=== PATIENT | female | born 1950 | race African-American/Black ===

== ENCOUNTER → 2017-03-29 | Outpatient (CLI) | payer OTHER, BC ==
--- NOTE | 2017-03-29 08:59 | US ---
EXAMINATION TYPE: US kidneys/renal and bladder DATE OF EXAM: 03/29/2017 8:40 AM COMPARISON: NONE CLINICAL HISTORY: R34 Anuria And Oliguria. Hematuria EXAM MEASUREMENTS: Right Kidney: 10.9 x 3.7 x 4.8 cm Left Kidney: 11.1 x 5.3 x 4.9 cm Post Void Residual Volume: 32.4 mL Right Kidney: no evidence of hydronephrosis or mass Left Kidney: no evidence of hydronephrosis or mass Bladder: appears wnl Bilateral Jets seen: yes Normal Post Void Residual: yes There is no evidence for hydronephrosis at this point in time. No nephrolithiasis is seen. No harry s are identified. The urinary bladder is anechoic. Bilateral ureteral jets are seen. IMPRESSION: No significant abnormality seen
== END | disposition home or self-care (01) ==
LOC: RADUSWWP 08:13
PROVIDERS: ATTEND Family Medicine
DX: R34 Anuria and oliguria (principal)
CPT/HCPCS: 76770

== ENCOUNTER → 2017-04-16 | Outpatient (CLI) | payer OTHER, BC ==
--- NOTE | 2017-04-16 20:01 | US ---
EXAMINATION TYPE: US thyroid st tissue head/neck DATE OF EXAM: 04/16/2017 COMPARISON: NONE CLINICAL HISTORY: E04.1 Thyroid nodule. GLAND SIZE: Right Lobe: 4.1 x 1.9 x 1.6 cm Overall Parenchyma: heterogenous Left Lobe: 4.1 x 1.7 x 1.8 cm Overall Parenchyma: heterogeneous Isthmus Thickness: 0.4 cm NODULES RIGHT: # of nodules measured on right: 3 1. 0.6 X 0.6 x 0.5 cm hypoechoic mixed nodule at the lower pole with well-defined margins. This no dule is wider than tall and shows no intranodular vascularity. Prior size: 0.8 x 0.6 x 0.7 cm 2. 0.8 X 0.9 x 1.3 cm echogenic solid nodule at the lower/mid medial pole with well-defined margins. . This nodule is taller than wide and shows no intranodular vascularity. Prior size: 1.1 x 0.9 x 1.0 cm 3. 0.7 X 0.6 x 0.6 cm echogenic solid nodule at the mid medial pole with well-defined margins. This nodule is wide as is tall and shows no intranodular vascularity. Prior size: 0.6 x 0.5 x 0.6 cm LEFT: # of nodules measured on left: 3 1. 2.0 X 1.3 x 1.3 cm echogenic mixed nodule at the lower lateral pole with well-defined margins. This nodule is wide as is tall and shows no intranodular vascularity. Prior size: 1.3 x 1.2 x 1.1 cm 2. 1.4 X 1.1 x 0.9 cm echogenic mixed nodule at the mid lateral pole with poorly defined margins. T his nodule is wider than tall and shows intranodular vascularity. Prior size: 1.0 x 0.7 x 1.0 cm 3. 0.8 X 0.7 x 0.6 cm echogenic solid nodule at the mid medial pole with poorly defined margins. Thi s nodule is wider than tall and shows no intranodular vascularity. Prior size: 0.7 x 0.8 x 0.9 cm ISTHMUS: # of nodules measured in the isthmus: 0 Bilateral neck scanned, no evidence of lymphadenopathy. IMPRESSION: Multiple bilateral findings are increased slightly compared to the previous exam and consistent with multinodular goiter. No dominant thyroid mass.
== END | disposition home or self-care (01) ==
LOC: RADUSMAIN 17:44
PROVIDERS: ATTEND Family Medicine
DX: E04.1 Nontoxic single thyroid nodule (principal)
CPT/HCPCS: 76536

== ENCOUNTER → 2019-12-27 | Outpatient (CLI) | payer MEDICARE, OTHER ==
--- NOTE | 2019-12-28 13:36 | MM ---
Reason for exam: screening (asymptomatic). Last mammogram was performed 3 years and 3 months ago. History: Patient is postmenopausal and had first child at age 33. Benign excisional biopsy of the left breast. Physical Findings: A clinical breast exam by your physician is recommended on an annual basis and results should be correlated with mammographic findings. MG 3D Screening Mammo W/Cad Bilateral CC and MLO view(s) were taken. XCCL view(s) were taken of the right breast. Prior study comparison: October 02, 2016, bilateral MG screening mammo w CAD. March 09, 2014, bilateral digital screening mammo w/CAD. The breast tissue is heterogeneously dense. This may lower the sensitivity of mammography. Left cardiac device partially obscures the left superior breast and axilla. 2D MLO is diagnostic but 3D MLO is non-diagnostic. ASSESSMENT: Negative, BI-RAD 1 RECOMMENDATION: Routine screening mammogram of both breasts in 1 year.
== END | disposition home or self-care (01) ==
LOC: RADMAMWWP 11:17
PROVIDERS: ATTEND Family Medicine
DX: Z12.31 Encounter for screening mammogram for malignant neoplasm of breast (principal)
CPT/HCPCS: 77063; 77067

== ENCOUNTER → 2021-06-09 | Outpatient (CLI) | payer MEDICARE, OTHER ==
--- NOTE | 2021-06-09 14:12 | US ---
LOWER EXTREMITY VENOUS INSUFFICIENCY CLINICAL HISTORY: I87.2 VENOUS INSUFFICENCY. SIDE PERFORMED: bilateral 1) Color flow is present and patency is documented in the following vessels. No DVT or SVT is noted . Common Femoral Vein Deep Femoral Vein Femoral Vein Popliteal Vein Proximal Calf Veins Greater Saph Vein Upper Small Saph Vein 2) There is venous reflux noted at the following venous levels: right EIV, right deep fem vn, right femoral vn mid, left EIV, left popliteal vein mid IMPRESSION: There is venous reflux noted at the following venous levels: right EIV, right deep fem vn, right fem oral vn mid, left EIV, left popliteal vein mid
== END | disposition home or self-care (01) ==
LOC: RADUSWWP 12:32
PROVIDERS: ATTEND Podiatrist Foot & Ankle Surgery
DX: I87.2 Venous insufficiency (chronic) (peripheral) (principal)
CPT/HCPCS: 93970

== ENCOUNTER → 2022-06-29 | Outpatient (CLI) | payer MEDICARE, OTHER ==
--- NOTE | 2022-06-29 16:30 | BD ---
EXAMINATION TYPE: Axial Bone Density DATE OF EXAM: 06/29/2022 COMPARISON: NONE CLINICAL HISTORY: 72 year old Female. ICD-10 CODE: Z87.81 PERSONAL HX OF HEALED TRAUMATIC FRACTURE Height: 62 Weight: 153.5 FRAX RISK QUESTIONS: Alcohol (3 or more units per day): no Family History (Parent hip fracture): yes Glucocorticoids (More than 3mos): no (Ex: prednisone, prednisolone, methylprednisolone, dexamethasone, and hydrocortisone). History of Fracture in Adulthood: yes Secondary Osteoporosis: 1. Type 1 Diabetes: no 2. Hyperthyroidism: no 3. Menopause before 45: no 4. Malnutrition: no 5. Chronic liver disease: no Rheumatoid Arthritis: no Current Tobacco Use: no RISK FACTORS HISTORY OF: Surgery to Spine/Hip(right/left)/Wrist (right/left): no Family History of Osteoporosis: no Active: no Diet low in dairy products/other sources of calcium: yes Postmenopausal woman: yes Lost more than 2 inches in height since high school: no MEDICATIONS: Thyroid Medications: amourthyroid How Lon years Additional History: EXAM MEASUREMENTS: Bone mineral densitometry was performed using the [employer] System. Bone mineral density as measured about the Lumbar spine is: ----- L1-L4(G/cm2): 0.869 T Score Values are as follows: ----- L1: -2.5 ----- L2: -3.0 ----- L3: -3.4 ----- L4: -1.8 ----- L1-L4: -2.6 Bone mineral density has: increased 2.6 % since study of: 08.21.2009 Bone mineral density about the R hip (g/cm2): 0.864 Bone mineral density about the L hip (g/cm2): 0.767 T Score values are as follows: -----R Neck -1.3 -----L Neck: -2.0 -----R Total: -1.4 -----L Total: -1.9 Bone mineral density has: decreased -10.0 % since study of: 08.21.2009 FRAX%s: The graph provided illustrates a 15.1 % chance for a major osteoporotic fx and a 7.5% chance for the hips probability for fx in 10 years time. IMPRESSION: Osteoporosis (T Score less than -2.5). There is increased fracture risk and therapy is usually indicated based on age. Re-Screen 1-2 years. NOTE: T-SCORE=SD OF THE YOUNG ADULT MEAN.
== END | disposition home or self-care (01) ==
LOC: RADBDWWP 14:32
PROVIDERS: ATTEND Family Medicine
DX: M81.0 Age-related osteoporosis without current pathological fracture (principal); Z87.81 Personal history of (healed) traumatic fracture
CPT/HCPCS: 77080

== ENCOUNTER → 2024-03-21 | Outpatient (CLI) | payer MEDICARE ==
--- NOTE | 2024-03-22 08:26 | US ---
EXAMINATION TYPE: US carotid duplex BILAT DATE OF EXAM: 03/21/2024 COMPARISON: NONE CLINICAL INDICATION: Female, 74 years old with history of I65.29 OCCLUSION AND STENOSIS OF UNSPECIFIE D CAROT; h/o TIA's TECHNIQUE: Carotid duplex ultrasound examination. Indirect Doppler criteria was utilized. FINDINGS: EXAM MEASUREMENTS: RIGHT: Peak Systolic Velocity (PSV) cm/sec ----- Right CCA: 87.3 ----- Right ICA: 66.3 ----- Right ECA: 60.2 ICA/CCA ratio: 0.7 RIGHT: End Diastole cm/sec ----- Right CCA: 15.5 ----- Right ICA: 20.3 ----- Right ECA: 4.7 LEFT: Peak Systolic Velocity (PSV) cm/sec ----- Left CCA: 85.1 ----- Left ICA: 65.8 ----- Left ECA: 57.0 ICA/CCA ratio: 0.8 LEFT: End Diastole cm/sec ----- Left CCA: 13.3 ----- Left ICA: 19.3 ----- Left ECA: 3.2 VERTEBRALS (direction of flow): Right Vertebral: Antegrade Left Vertebral: Antegrade Rhythm: Normal INTENSIVE CARE MEDICINE SPECIALIST NOTES: Mild homogeneous plaque seen with no significant stenosis . Intimal thickening is present. IMPRESSION: 1. Diffuse intimal thickening without significant flow-limiting stenosis. Criteria for Assigning % of Stenosis / Diameter reduction (Estimation based on the indirect measurements of the internal carotid artery velocities (ICA PSV). 1. Normal (no stenosis)=ICA PSV < 125 cm/s: ratio < 2.0: ICA EDV<40 cm/s. 2. Less than 50% stenosis=ICA PSV < 125 cm/s: ratio < 2.0: ICA EDV<40 cm/s. 3. 50 to 69% stenosis=ICA PSV of 125 to 230 cm/s: ration 2.0 ? 4.0: ICA EDV 40-100 cm/s. 4. Greater than 70% stenosis to near occlusion= ICA PSV > 230 cm/s: ratio > 4.0: ICA EDV > 100 cm/s. 5. Near occlusion= ICA PSV velocities may be low or undetectable: variable ratio and ICA EDV. 6. Total occlusion=unable to detect flow.
== END | disposition home or self-care (01) ==
LOC: RADUSWWP 15:37
PROVIDERS: ATTEND Family Medicine
DX: I77.89 Other specified disorders of arteries and arterioles (principal); I65.29 Occlusion and stenosis of unspecified carotid artery
CPT/HCPCS: 93880

== ENCOUNTER 2024-05-01 16:59 | Observation (INO) | payer MEDICARE, OTHER ==
--- NOTE | 2024-05-01 18:35 | ED ---
Lower Extremity Injury HPI - General Chief Complaint: Extremity Injury, Lower Stated Complaint: Right Leg Swelling, Leg Pain, Bilateral Numbness Time Seen by Provider: 05/01/24 17:57 Source: patient, RN notes reviewed, old records reviewed Mode of arrival: wheelchair Limitations: no limitations - History of Present Illness Initial Comments: This is a 74-year-old female to the ER for evaluation of right foot pain right lower extremity pain swelling with foot pain and discoloration great toe redness and tenderness. Patient has no fevers increased swelling after recent cardiac catheterization CABG with saphenous venous grafting. MD Complaint: leg injury, ankle injury, foot injury -: days(s) Injury: Leg: Right, Knee: Right, Ankle: Right, Foot: Right Place: home Severity: moderate Severity scale (1-10): 7 Improves With: immobilization Worsens With: weight bearing, movement, palpation Context: other (recent surgery) Associated Symptoms: swelling, numbness, unable to bear weight Treatments Prior to Arrival: other (0) - Related Data Home Medications Medication Instructions Recorded Confirmed Aspirin [Adult Low Dose Aspirin EC] 81 mg PO DAILY 08/06/22 05/01/24 Thyroid,Pork [Cayuta Thyroid] 90 mg PO DAILY 08/06/22 05/01/24 Amiodarone [Cordarone] 200 mg PO DAILY 05/01/24 05/01/24 Clopidogrel [Plavix] 75 mg PO DAILY 05/01/24 05/01/24 Furosemide [Lasix] 20 mg PO BID 05/01/24 05/01/24 Potassium Chloride ER [K-Dur 10] 10 meq PO DAILY 05/01/24 05/01/24 Rosuvastatin [Crestor] 20 mg PO HS 05/01/24 05/01/24 Previous Rx's Medication Instructions Recorded Metoprolol Tartrate [Lopressor] 25 mg PO BID #60 tab 09/04/23 Allergies Allergy/AdvReac Type Severity Reaction Status Date / Time TRAVIS Inhibitors Allergy Anaphylaxis Verified 05/01/24 18:46 levothyroxine sodium Allergy Swelling Verified 05/01/24 18:46 [From Synthroid] beta blockers Allergy Anaphylaxis Uncoded 05/01/24 18:46 Preservatives/synthetic Allergy Swelling Uncoded 05/01/24 18:46 medications Review of Systems ROS Statement: Those systems with pertinent positive or pertinent negative responses have been documented in the HPI. ROS Other: All systems not noted in ROS Statement are negative. Past Medical History Past Medical History: Coronary Artery Disease (CAD), Hypertension, Thyroid Disorder History of Any Multi-Drug Resistant Organisms: None Reported Past Surgical History: Coronary Bypass/CABG, Hysterectomy, Pacemaker Additional Past Surgical History / Comment(s): cataract Past Anesthesia/Blood Transfusion Reactions: No Reported Reaction Type of Cardiac Device: AICD Device Placement Date:: 2013 Past Psychological History: No Psychological Hx Reported Smoking Status: Never smoker Past Alcohol Use History: Occasional Past Drug Use History: None Reported - Past Family History Brother(s) Family Medical History: Cancer, Congestive Heart Failure (CHF) Father Family Medical History: Cancer, Congestive Heart Failure (CHF) General Exam General appearance: alert, in no apparent distress Head exam: Present: atraumatic, normocephalic, normal inspection Eye exam: Present: normal appearance, PERRL, EOMI. Absent: scleral icterus, conjunctival injection, periorbital swelling ENT exam: Present: normal exam, mucous membranes moist Neck exam: Present: normal inspection. Absent: tenderness, meningismus, lymphadenopathy Respiratory exam: Present: normal lung sounds bilaterally. Absent: respiratory distress, wheezes, rales, rhonchi, stridor Cardiovascular Exam: Present: regular rate, normal rhythm, normal heart sounds. Absent: systolic murmur, diastolic murmur, rubs, gallop, clicks GI/Abdominal exam: Present: soft, normal bowel sounds. Absent: distended, tenderness, guarding, rebound, rigid Extremities exam: Present: normal inspection, full ROM, normal capillary refill. Absent: tenderness, pedal edema, joint swelling, calf tenderness Back exam: Present: normal inspection Neurological exam: Present: alert, oriented X3, CN II-XII intact Psychiatric exam: Present: normal affect, normal mood Skin exam: Present: warm, dry, intact, normal color. Absent: rash Course Vital Signs 05/01/24 17:45 Temperature 98.5 F Pulse Rate 80 Respiratory 18 Rate Blood Pressure 117/67 O2 Sat by Pulse 98 Oximetry - Reevaluation(s) Reevaluation #1: 05/01/24 18:34 Medical records reviewed Reevaluation #2: 05/01/24 19:58 patient symptoms are improved Reevaluation #3: 05/01/24 19:59 Patient informed of results and questions answered Reevaluation #4: Was pt. sent in by a medical professional or institution (, [facility], PHARMACISTS, urgent care, hospital, or group home...) When possible be specific @ -no Did you speak to anyone other than the patient for history (EMS, parent, family, police, friend...)? What history was obtained from this source @ -no Did you review nursing and triage notes (agree or disagree)? Why? @ -agree Are old charts reviewed (outside hosp., previous admission, EMS record, old EKG, old radiological studies, urgent care reports/EKG's, group home records)? Report findings @ -yes Differential Diagnosis (chest pain, altered mental status, abdominal pain women, abdominal pain men, vaginal bleeding, weakness, fever, dyspnea, syncope, headache, dizziness, GI bleed, back pain, seizure, CVA, palpatations, mental health, musculoskeletal)? @ -prior EKG interpreted by me (3pts min.). @ -yes X-rays interpreted by me (1pt min.). @ -yes negative for acute disease CT interpreted by me (1pt min.). @ -no U/S interpreted by me (1pt. min.). @ -no What testing was considered but not performed or refused? (CT, X-rays, U/S, labs)? Why? @ -none What meds were considered but not given or refused? Why? @ -none Did you discuss the management of the patient with other professionals (professionals i.e. , [facility], PHARMACISTS, lab, RT, psych nurse, social media executive, applique sewer, teacher, air antisubmarine officer, pillowcase cleaner)? Give summary @ -no Was smoking cessation discussed for >3mins.? @ -no Were there social determinants of health that impacted care today? How? (Homelessness, low income, unemployed, alcoholism, drug addiction, transportation, low edu. Level, literacy, decrease access to med. care, residential, rehab)? @ -none Was there de-escalation of care discussed even if they declined (Discuss DNR or withdrawal of care, Hospice)? DNR status @ -no What co-morbidities impacted this encounter? (DM, HTN, Smoking, COPD, CAD, Cancer, CVA, ARF, Chemo, Hep., AIDS, mental health diagnosis, sleep apnea, morbid obesity)? @ -none Was patient admitted / discharged? Hospital course, mention meds given and route, prescriptions, significant lab abnormalities, [facility]. @ - Was critical care preformed (if so, how long)? @ -no Undiagnosed new problem with uncertain prognosis? @ -no Drug Therapy requiring intensive monitoring for toxicity (Heparin, Nitro, Insulin, Cardizem)? @ -no Were any procedures done? @ -no Diagnosis/symptom? @ - Acute, or Chronic, or Acute on Chronic? @ -Acute Uncomplicated (without systemic symptoms) or Complicated (systemic symptoms)? @ -Complicated Side effects of treatment? @ -no Exacerbation, Progression, or Severe Exacerbation? @ -exacerbation Poses a threat to life or bodily function? How? (Chest pain, USA, PA, pneumonia, PE, COPD, DKA, ARF, appy, cholecystitis, CVA, Diverticulitis, Homicidal, Suicidal, threat to staff... and all critical care pts) @ -yes - Consultations Consultation #1: Spoke with [facility] who agrees to admit this patient Medical Decision Making - Medical Decision Making 74 female to ER with severe right foot pain with right great toe pain and swelling. Patient will be admitted for IV antibiotics of cellulitis versus gout - EKG Data -: EKG Interpreted by Me (EKG is paced 80 WV 168 QRS 154 QTc 476) EKG shows normal: sinus rhythm Rate: normal - Radiology Data Radiology results: report reviewed (US), image reviewed Disposition Clinical Impression: Pain of right great toe, Cellulitis of toe of right foot, Gouty arthritis of great toe Disposition: ADMITTED IP TO THIS HOSP Condition: Fair Is patient prescribed a controlled substance at d/c from ED?: No Referrals: Alexis Navarrete DO [Primary Care Provider] - 1-2 days Time of Disposition: 20:00
--- NOTE | 2024-05-01 19:05 | XR ---
Right foot HISTORY: Pain. COMPARISON: None TECHNIQUE: 3 views of right foot were obtained. FINDINGS: There is mild hallux valgus deformity. There is no fracture, dislocation or focal intraosseous abnormality. There is a small plantar calcane al spur. IMPRESSION: 1. No acute trauma. 2. Mild hallux valgus deformity. 3. Small plantar calcaneal spur.
[2024-05-01] MEDS ORDERED: ONDANSETRON 4 MG/2 ML VIAL IVP PRN (19:56)
[2024-05-01] MEDS ORDERED: NALOXONE 0.4 MG/ML 1 ML VIAL IV PRN (19:56)
[2024-05-01] MEDS ORDERED: VANCOMYCIN IV PER PHARMACY 1 EACH MISC MISCELLANE PRN (19:56)
--- NOTE | 2024-05-01 20:01 | US ---
EXAMINATION TYPE: US venous doppler duplex LE RT DATE OF EXAM: 05/01/2024 7:50 PM COMPARISON: 06/09/2021 CLINICAL INDICATION: Female, 74 years old with history of pain; Patient states leg pain and swelling since triple bypass surgery at the end of march. Has wound on lower calf. Patient has no hx of a dvt an d is currently on blood thinners. SIDE PERFORMED: Right TECHNIQUE: The lower extremity deep venous system is examined utilizing real time linear array sonog harriet with graded compression, doppler sonography and color-flow sonography. VESSELS IMAGED: Common Femoral Vein Deep Femoral Vein Greater Saphenous Vein * Femoral Vein Popliteal Vein Small Saphenous Vein * Proximal Calf Veins (* superficial vessels) The deep venous system of the right lower extremity from the common femoral vein to the proximal calf veins is patent and compressible with augmentable flow with normal waveforms. IMPRESSION: No evidence of right lower extremity DVT from the common femoral vein to the proximal calf veins
[2024-05-01] MEDS: METOPROLOL TARTRATE 25 MG TAB PO SCH (21:58)
[2024-05-01] MEDS: FUROSEMIDE 20 MG TAB PO SCH (21:58)
[2024-05-01] MEDS: ATORVASTATIN 40 MG TAB PO SCH (21:58)
[2024-05-01 21:59] LABS: Basophils % (A) 0 %; Eosinophils # (A) 0.6 k/uL (0-0.7); Eosinophils % (A) 9 %; HCT 31.9 % (34.0-46.0); HGB 9.9 gm/dL (11.4-16.0); Hypochromasia Slight; Lymphocytes % (A) 31 %; MCH 29.1 pg (25.0-35.0); MCHC 31.2 g/dL (31.0-37.0); MCV 93.2 fL (80.0-100.0); Mean Platelet Volume 6.8; Monocytes # (A) 0.4 k/uL (0-1.0); Monocytes % (A) 6 %; Neutrophils # (A) 3.4 k/uL (1.3-7.7); Neutrophils % (A) 52 %; Platelet Count 376 k/uL (150-450); RBC 3.42 m/uL (3.80-5.40); RDW 15.6 % (11.5-15.5); WBC 6.7 k/uL (3.8-10.6)
[2024-05-01] MEDS: SODIUM CHLORIDE 0.9% 1,000 ML IV SCH (21:59)
[2024-05-01] MEDS: KETOROLAC 15 MG/ML 1 ML VIAL IVP STA (22:00)
[2024-05-01] MEDS: SODIUM CHLORIDE 0.9% 1,000 ML IV STA (22:15)
[2024-05-01 22:26] LABS: Prothrombin Time 10.8 sec (10.0-12.5)
[2024-05-01] MEDS: MORPHINE SULFATE 4 MG/ML SYRINGE IV PRN (22:30)
[2024-05-01 22:49] LABS: ALT 15 U/L (4-34); AST 28 U/L (14-36); African American GFR (CKD) 87 (>60 ml/min/1.73 sqM); Albumin 3.3 g/dL (3.5-5.0); Albumin/Globulin Ratio 1.1; Alkaline Phosphatase 115 U/L (38-126); Anion Gap 8 mmol/L; Blood Urea Nitrogen 13 mg/dL (7-17); C Reactive Protein 1.6 mg/dL (<1.0); Calcium 8.2 mg/dL (8.4-10.2); Carbon Dioxide 24 mmol/L (22-30); Chloride 106 mmol/L (98-107); Globulin 2.9 g/dL; Glucose 99 mg/dL (74-99); Magnesium 1.8 mg/dL (1.6-2.3); Non-African American GFR(CKD) 75 (>60 ml/min/1.73 sqM); Phosphorus 3.6 mg/dL (2.5-4.5); Potassium 3.6 mmol/L (3.5-5.1); Sodium 138 mmol/L (137-145); Total Bilirubin 0.8 mg/dL (0.2-1.3); Total Protein 6.2 g/dL (6.3-8.2); Uric Acid 6.8 mg/dL (3.7-7.4)
[2024-05-01 22:55] LABS: NT-Pro-B-Type Natriuretic Pept 701 pg/mL
[2024-05-01] MEDS: VANCOMYCIN 1,250 MG in SODIUM CHLORIDE 0.9% 250 ML IVPB STA (23:58)
[2024-05-02 08:59] LABS: Basophils # (A) 0.03 X 10*3/uL (0.00-0.10); Basophils % (A) 0.6 %; Eosinophils # (A) 0.54 X 10*3/uL (0.04-0.35); Eosinophils % (A) 10.1 %; HCT 29.2 % (37.2-46.3); HGB 8.7 g/dL (12.0-15.0); MCH 28.4 pg (27.0-32.0); MCHC 29.8 g/dL (32.0-37.0); MCV 95.4 FL (80.0-97.0); Mean Platelet Volume 9.1 FL (9.5-12.2); Monocytes % (A) 9.4 %; NRBC Per 100 WBC 0 X 10*3/uL (0.00-0.01); Neutrophils # (A) 2.64 X 10*3/uL (1.80-7.70); Neutrophils % (A) 49.5 %; Platelet Count 338 X 10*3/uL (140-440); RBC 3.06 X 10*6/uL (4.10-5.20); RDW 16.1 % (11.5-14.5); WBC 5.33 X 10*3/uL (4.50-10.00)
[2024-05-02 09:09] LABS: ALT 15 U/L (8-44); AST 22 U/L (13-35); Albumin 3.2 g/dL (3.8-4.9); Albumin/Globulin Ratio 1.23 Ratio (1.60-3.17); Alkaline Phosphatase 98 U/L (41-126); Blood Urea Nitrogen 10.8 mg/dL (9.0-27.0); Calcium 8.1 mg/dL (8.7-10.3); Carbon Dioxide 25.3 mmol/L (21.6-31.8); Chloride 107 mmol/L (96-109); Globulin 2.6 g/dL (1.6-3.3); Glucose 100 mg/dL (70-110); Magnesium 1.8 mg/dL (1.5-2.4); Phosphorus 3.6 mg/dL (2.4-5.1); Potassium 3.6 mmol/L (3.5-5.5); Sodium 143 mmol/L (135-145); Total Bilirubin 0.4 mg/dL (0.3-1.2); Total Protein 5.8 g/dL (6.2-8.2)
[2024-05-02] MEDS ORDERED: CALCIUM CARBONATE 500 MG CHEWABLE PO PRN (10:45)
[2024-05-02] MEDS ORDERED: ACETAMINOPHEN TAB 325 MG TAB PO PRN (10:45)
[2024-05-02] MEDS ORDERED: MELATONIN 3 MG TABLET PO PRN (10:45)
[2024-05-02] MEDS ORDERED: ALPRAZolam 0.25 MG TAB PO PRN (10:45)
[2024-05-02] MEDS ORDERED: LACTULOSE 20 GM/30 ML CUP PO PRN (10:45)
[2024-05-02] MEDS: AMIODARONE 200 MG TAB PO SCH (11:36)
[2024-05-02] MEDS: POTASSIUM CHLORIDE ER 10 MEQ TAB.ER.PRT PO SCH (11:36)
[2024-05-02] MEDS: ASPIRIN 81 MG PO SCH (11:37)
[2024-05-02] MEDS: CLOPIDOGREL 75 MG TAB PO SCH (11:37)
[2024-05-02] MEDS: ENOXAPARIN 40 MG/0.4 ML SYRINGE SQ SCH (11:39)
[2024-05-02] MEDS: VANCOMYCIN 1,250 MG in SODIUM CHLORIDE 0.9% 250 ML IVPB SCH (12:03)
[2024-05-02] MEDS: THYROID, PORK 30 MG TAB PO SCH (12:29)
[2024-05-02] MEDS: AMPICILLIN-SULBACTAM 1.5 GM in SODIUM CHLORIDE 0.9% 50 ML IVPB SCH (12:30)
--- NOTE | 2024-05-02 15:58 | P.GSCN ---
History of Present Illness History of present illness: 74-year-old pleasant female patient has been admitted through the emergency room with history of pain in the right foot and some discoloration of the big toe. And had a CABG done at [facility] they explored the right great saphenous vein accord with the patient but they did not use it because small in caliber no history of fever or chill patient has a incision on the right lower extremity for exploration of the great saphenous vein. Site is clean and healing we have changed her dressing. Sounds done on the right leg there is no evidence of deep vein thrombosis On examination neck is supple no bruit appreciated Chest is clear good in both lung. Second sound normal abdomen soft nontender Vascular femorals are 2+ bilateral posterior tibial dorsal pedis by the Doppler incision on the right lower extremity shows some mild swelling and no evidence of hematoma right foot swelling is almost gone and patient has decent flow to the digital vessel of the right leg. Patient is stable from a vascular point of view I will discuss with Dr. Cheng Past Medical History Past Medical History: Coronary Artery Disease (CAD), CVA/TIA, Hypertension, Thyroid Disorder Additional Past Medical History / Comment(s): Triple Bypass 04/11/24 [facility], osteoporosis, TIA History of Any Multi-Drug Resistant Organisms: None Reported Past Surgical History: AICD, Coronary Bypass/CABG, Hysterectomy, Pacemaker Additional Past Surgical History / Comment(s): cataract Past Anesthesia/Blood Transfusion Reactions: No Reported Reaction Type of Cardiac Device: AICD Device Placement Date:: 2021 Past Psychological History: No Psychological Hx Reported Smoking Status: Never smoker Past Alcohol Use History: Occasional Past Drug Use History: None Reported - Past Family History Brother(s) Family Medical History: Cancer, Congestive Heart Failure (CHF) Father Family Medical History: Cancer, Congestive Heart Failure (CHF) Medications and Allergies Home Medications Medication Instructions Recorded Confirmed Type Aspirin [Adult Low Dose Aspirin EC] 81 mg PO DAILY 08/06/22 05/01/24 History Thyroid,Pork [Wrens Thyroid] 90 mg PO DAILY 08/06/22 05/01/24 History Metoprolol Tartrate [Lopressor] 25 mg PO BID #60 tab 09/04/23 05/01/24 Rx Amiodarone [Cordarone] 200 mg PO DAILY 05/01/24 05/01/24 History Clopidogrel [Plavix] 75 mg PO DAILY 05/01/24 05/01/24 History Furosemide [Lasix] 20 mg PO BID 05/01/24 05/01/24 History Potassium Chloride ER [K-Dur 10] 10 meq PO DAILY 05/01/24 05/01/24 History Rosuvastatin [Crestor] 20 mg PO HS 05/01/24 05/01/24 History Allergies Allergy/AdvReac Type Severity Reaction Status Date / Time TRAVIS Inhibitors Allergy Anaphylaxis Verified 05/01/24 18:46 levothyroxine sodium Allergy Swelling Verified 05/01/24 18:46 [From Synthroid] beta blockers Allergy Anaphylaxis Uncoded 05/01/24 18:46 Preservatives/synthetic Allergy Swelling Uncoded 05/01/24 18:46 medications Surgical - Exam Vital Signs Temp Pulse Resp BP Pulse Ox 98.5 F 80 18 117/67 98 05/01/24 17:45 05/01/24 17:45 05/01/24 17:45 05/01/24 17:45 05/01/24 17:45 Results - Labs 05/02/24 02:42 05/02/24 02:42 Abnormal Lab Results - Last 24 Hours (Table) 05/01/24 05/01/24 05/01/24 Range/Units 21:08 21:08 22:21 RBC 3.42 L (3.80-5.40) m/uL Hgb 9.9 L (11.4-16.0) gm/dL Hct 31.9 L (34.0-46.0) % MCHC (32.0-37.0) g/dL RDW 15.6 H (11.5-15.5) % MPV (9.5-12.2) FL Eosinophils # (0.04-0.35) X 10*3/uL D-Dimer 6.11 H (<0.60) mg/L FEU Calcium 8.2 L (8.4-10.2) mg/dL C-Reactive Protein 1.6 H (<1.0) mg/dL Total Protein 6.2 L (6.3-8.2) g/dL Albumin 3.3 L (3.5-5.0) g/dL Albumin/Globulin Ratio (1.60-3.17) Ratio 05/02/24 05/02/24 Range/Units 02:42 02:42 RBC 3.06 L (3.80-5.40) m/uL Hgb 8.7 L (11.4-16.0) gm/dL Hct 29.2 L (34.0-46.0) % MCHC 29.8 L (32.0-37.0) g/dL RDW 16.1 H (11.5-15.5) % MPV 9.1 L (9.5-12.2) FL Eosinophils # 0.54 H (0.04-0.35) X 10*3/uL D-Dimer (<0.60) mg/L FEU Calcium 8.1 L (8.4-10.2) mg/dL C-Reactive Protein (<1.0) mg/dL Total Protein 5.8 L (6.3-8.2) g/dL Albumin 3.2 L (3.5-5.0) g/dL Albumin/Globulin Ratio 1.23 L (1.60-3.17) Ratio Diabetes panel 05/01/24 05/02/24 Range/Units 22:21 02:42 Sodium 138 143 (137-145) mmol/L Potassium 3.6 3.6 (3.5-5.1) mmol/L Chloride 106 107 (98-107) mmol/L Carbon Dioxide 24 25.3 (22-30) mmol/L BUN 13 10.8 (7-17) mg/dL Creatinine 0.77 0.8 (0.52-1.04) mg/dL Glucose 99 100 (74-99) mg/dL Calcium 8.2 L 8.1 L (8.4-10.2) mg/dL AST 28 22 (14-36) U/L ALT 15 15 (4-34) U/L Alkaline Phosphatase 115 98 (38-126) U/L Total Protein 6.2 L 5.8 L (6.3-8.2) g/dL Albumin 3.3 L 3.2 L (3.5-5.0) g/dL Calcium panel 05/01/24 05/02/24 Range/Units 22:21 02:42 Calcium 8.2 L 8.1 L (8.4-10.2) mg/dL Phosphorus 3.6 3.6 (2.5-4.5) mg/dL Albumin 3.3 L 3.2 L (3.5-5.0) g/dL Pituitary panel 05/01/24 05/02/24 Range/Units 22:21 02:42 Sodium 138 143 (137-145) mmol/L Potassium 3.6 3.6 (3.5-5.1) mmol/L Chloride 106 107 (98-107) mmol/L Carbon Dioxide 24 25.3 (22-30) mmol/L BUN 13 10.8 (7-17) mg/dL Creatinine 0.77 0.8 (0.52-1.04) mg/dL Glucose 99 100 (74-99) mg/dL Calcium 8.2 L 8.1 L (8.4-10.2) mg/dL Adrenal panel 05/01/24 05/02/24 Range/Units 22:21 02:42 Sodium 138 143 (137-145) mmol/L Potassium 3.6 3.6 (3.5-5.1) mmol/L Chloride 106 107 (98-107) mmol/L Carbon Dioxide 24 25.3 (22-30) mmol/L BUN 13 10.8 (7-17) mg/dL Creatinine 0.77 0.8 (0.52-1.04) mg/dL Glucose 99 100 (74-99) mg/dL Calcium 8.2 L 8.1 L (8.4-10.2) mg/dL Total Bilirubin 0.8 0.4 (0.2-1.3) mg/dL AST 28 22 (14-36) U/L ALT 15 15 (4-34) U/L Alkaline Phosphatase 115 98 (38-126) U/L Total Protein 6.2 L 5.8 L (6.3-8.2) g/dL Albumin 3.3 L 3.2 L (3.5-5.0) g/dL
--- NOTE | 2024-05-02 16:58 | P.HPIM ---
History of Present Illness H&P Date: 05/02/24 Chief Complaint: Right foot redness swelling This is a pleasant 74-year-old patient follows with Dr. Navarrete. Patient follows at [facility]. Dr. Lujan-woodworking machine offbearer, Dr. Gale, cardiothoracic surgeon, -EP. Patient recently underwent a coronary bypass and [facility]. Discharged from there on April 22. They did try patient's right leg veins but ended ultimately up to use internal mammary artery. Patient presents some swelling of both lower extremity right greater than left. It is the right leg that try to take the veins from. Patient had noticed that around the right big toe and proximal LAD had become rather painful tender and swollen. Patient had no fever and chills and decided to come in. No prior history of gout. Denies any fever and chills. Tired. Appetite had decreased a bit. No change in bowel pattern. Received IV ceftriaxone and vancomycin in the ER. Pain swelling redness much better this morning. Review of systems: GEN.: Tired EYES: None HEENT: As above NECK: None RESPIRATORY: None CARDIOVASCULAR: None GASTROINTESTINAL: None GENITOURINARY: None MUSCULOSKELETAL: As above LYMPHATICS: None HEMATOLOGICAL: None PSYCHIATRY: None NEUROLOGICAL: None Social history: Nonsmoker. Lives alone. Retired from working at [employer]. Alcohol occasionally. Physical examination: VITAL SIGNS: 98.4, 80, 16, 109 x 66, 98% room air GENERAL: BMI 27.8, reclining. Sternal incisions healing well EYES: Pupils equal. Conjunctiva normal. HEENT: External appearance of nose and ears normal, oral cavity grossly normal. NECK: JVD not raised; masses not palpable. HEART: First and second heart sounds are normal; no edema. LUNGS: Respiratory rate normal; clear to auscultation. ABDOMEN: Soft, nontender, liver spleen not palpable, no masses palpable. PSYCH: Alert and oriented x3; mood and affect normal. MUSCULOSKELETAL: Right leg areas of vein harvesting have got stitches on the same. Some swelling of the right lower extremity. Area of initial redness around the right big toe and the proximal area better. Minimal tenderness. INVESTIGATIONS, reviewed in the clinical context: May 02, 2024: White count 5.3 hemoglobin 8.7 platelets 338 sodium 143 potassium 3.6 creatinine 0.8 Assessment and plan: -Acute cellulitis right lower extremity possibly precipitated by area of vein stripping extending down to the right big toe. Clinically doubt gout IV Unasyn -CAD, prior stents Plavix. Lopressor. Aspirin. Crestor -CABG patient discharged from the hospital on April 22 Sternal incision wound healing well -Essential hypertension Lopressor 25 mg twice a day. -Hyperlipidemia Crestor -Hypothyroid [place] Thyroid Care was discussed with patient and patient's son Jos who is a 7th grade social studies teacher in the hospital. Questions answered. Consultation made to Dr. Stanford from vascular. Past Medical History Past Medical History: Coronary Artery Disease (CAD), Hypertension, Thyroid Disorder History of Any Multi-Drug Resistant Organisms: None Reported Past Surgical History: Coronary Bypass/CABG, Hysterectomy, Pacemaker Additional Past Surgical History / Comment(s): cataract Past Anesthesia/Blood Transfusion Reactions: No Reported Reaction Type of Cardiac Device: AICD Device Placement Date:: 2013 Past Psychological History: No Psychological Hx Reported Smoking Status: Never smoker Past Alcohol Use History: Occasional Past Drug Use History: None Reported - Past Family History Brother(s) Family Medical History: Cancer, Congestive Heart Failure (CHF) Father Family Medical History: Cancer, Congestive Heart Failure (CHF) Medications and Allergies Home Medications Medication Instructions Recorded Confirmed Type Aspirin [Adult Low Dose Aspirin EC] 81 mg PO DAILY 08/06/22 05/01/24 History Thyroid,Pork [[place] Thyroid] 90 mg PO DAILY 08/06/22 05/01/24 History Metoprolol Tartrate [Lopressor] 25 mg PO BID #60 tab 09/04/23 05/01/24 Rx Amiodarone [Cordarone] 200 mg PO DAILY 05/01/24 05/01/24 History Clopidogrel [Plavix] 75 mg PO DAILY 05/01/24 05/01/24 History Furosemide [Lasix] 20 mg PO BID 05/01/24 05/01/24 History Potassium Chloride ER [K-Dur 10] 10 meq PO DAILY 05/01/24 05/01/24 History Rosuvastatin [Crestor] 20 mg PO HS 05/01/24 05/01/24 History Allergies Allergy/AdvReac Type Severity Reaction Status Date / Time TRAVIS Inhibitors Allergy Anaphylaxis Verified 05/01/24 18:46 levothyroxine sodium Allergy Swelling Verified 05/01/24 18:46 [From Synthroid] beta blockers Allergy Anaphylaxis Uncoded 05/01/24 18:46 Preservatives/synthetic Allergy Swelling Uncoded 05/01/24 18:46 medications Physical Exam Vitals: Vital Signs Temp Pulse Pulse Resp BP BP Pulse Ox 05/02/24 07:00 98.0 F 80 17 131/79 99 05/02/24 06:42 80 18 113/67 97 05/02/24 05:18 80 18 124/61 95 05/02/24 01:06 98.3 F 79 16 114/62 95 05/02/24 00:08 80 18 123/65 96 05/01/24 22:22 80 18 143/73 96 05/01/24 17:45 98.5 F 80 18 117/67 98 Intake and Output 05/01/24 05/02/24 05/02/24 22:59 06:59 14:59 Intake Total 236 Balance 236 Intake: Oral 236 Other: Weight 63.049 kg Results CBC & Chem 7: 05/02/24 02:42 05/02/24 02:42 Labs: Abnormal Lab Results - Last 24 Hours (Table) 05/01/24 05/01/24 05/01/24 Range/Units 21:08 21:08 22:21 RBC 3.42 L (3.80-5.40) m/uL Hgb 9.9 L (11.4-16.0) gm/dL Hct 31.9 L (34.0-46.0) % MCHC (32.0-37.0) g/dL RDW 15.6 H (11.5-15.5) % MPV (9.5-12.2) FL Eosinophils # (0.04-0.35) X 10*3/uL D-Dimer 6.11 H (<0.60) mg/L FEU Calcium 8.2 L (8.4-10.2) mg/dL C-Reactive Protein 1.6 H (<1.0) mg/dL Total Protein 6.2 L (6.3-8.2) g/dL Albumin 3.3 L (3.5-5.0) g/dL Albumin/Globulin Ratio (1.60-3.17) Ratio 05/02/24 05/02/24 Range/Units 02:42 02:42 RBC 3.06 L (3.80-5.40) m/uL Hgb 8.7 L (11.4-16.0) gm/dL Hct 29.2 L (34.0-46.0) % MCHC 29.8 L (32.0-37.0) g/dL RDW 16.1 H (11.5-15.5) % MPV 9.1 L (9.5-12.2) FL Eosinophils # 0.54 H (0.04-0.35) X 10*3/uL D-Dimer (<0.60) mg/L FEU Calcium 8.1 L (8.4-10.2) mg/dL C-Reactive Protein (<1.0) mg/dL Total Protein 5.8 L (6.3-8.2) g/dL Albumin 3.2 L (3.5-5.0) g/dL Albumin/Globulin Ratio 1.23 L (1.60-3.17) Ratio
[2024-05-03 03:33] VITALS: RESP 16
[2024-05-03 08:24] VITALS: BP 132/79; PULSE 79; TEMP 98.2
--- NOTE | 2024-05-03 16:54 | P.DS ---
Providers Date of admission: 05/01/24 19:57 Expected date of discharge: 05/03/24 Attending physician: Marshall Cheng Consults: 05/02/24 10:38 Consult Physician Routine Consulting Provider: Pascual Stanford Consult Reason/Comments: R leg vianassessment Do you want consulting provider notified?: Yes Primary care physician: [facility] Course: Chief Complaint: Right foot redness swelling This is a pleasant 74-year-old patient follows with Dr. Navarrete. Patient follows at [facility]. Dr. Lujan-senior network engineer, Dr. Gale, cardiothoracic surgeon, -EP. Patient recently underwent a coronary bypass and [facility]. Discharged from there on April 22. They did try patient's right leg veins but ended ultimately up to use internal mammary artery. Patient presents some swelling of both lower extremity right greater than left. It is the right leg that try to take the veins from. Patient had noticed that around the right big toe and proximal LAD had become rather painful tender and swollen. Patient had no fever and chills and decided to come in. No prior history of gout. Denies any fever and chills. Tired. Appetite had decreased a bit. No change in bowel pattern. Received IV ceftriaxone and vancomycin in the ER. Pain swelling redness much better this morning. May 03: Patient doing well. Discussed with Dr. Stanford over the phone. He will look into the ultrasound report regarding reading of great saphenous vein. Nurse will call radiology department. Patient to use Bhavik wrap in both legs during daytime. Cut back Lasix to once a day. Fluid restriction 2000 cc a day. Follow-up with her physicians. Discussed with patient's son Marco over the phone. Questions answered. Discussion and discharge planning more than 35 minutes Social history: Nonsmoker. Lives alone. Retired from working at [employer]. Alcohol occasionally. Physical examination: VITAL SIGNS: 98.2, 79, 16, 132/79, 94% room air GENERAL: BMI 27.8, reclining. Sternal incisions healing well EYES: Pupils equal. Conjunctiva normal. HEENT: External appearance of nose and ears normal, oral cavity grossly normal. NECK: JVD not raised; masses not palpable. HEART: First and second heart sounds are normal; no edema. LUNGS: Respiratory rate normal; clear to auscultation. ABDOMEN: Soft, nontender, liver spleen not palpable, no masses palpable. PSYCH: Alert and oriented x3; mood and affect normal. MUSCULOSKELETAL: Right leg areas of vein harvesting have got stitches on the same. Some swelling of the right lower extremity. Area of initial redness around the right big toe and the proximal area better. Minimal tenderness. INVESTIGATIONS, reviewed in the clinical context: May 02, 2024: White count 5.3 hemoglobin 8.7 platelets 338 sodium 143 potassium 3.6 creatinine 0.8 Assessment and plan: -Acute cellulitis right lower extremity possibly precipitated by area of vein stripping extending down to the right big toe. Clinically doubt gout IV Unasyn Discharged on Keflex 500 mg every 6 for 5 days -Acute postprocedure blood loss anemia likely from coronary bypass -Bilateral lower extremity venous insufficiency right greater than left Bhavik wrap's t lower extremity during daytime -CAD, prior stents Plavix. Lopressor. Aspirin. Crestor -CABG patient discharged from the hospital on April 22 Sternal incision wound healing well -Essential hypertension Lopressor 25 mg twice a day. -Hyperlipidemia Crestor -Hypothyroid [place] Thyroid -Full code Disposition: Home Past Medical History Past Medical History: Coronary Artery Disease (CAD), Hypertension, Thyroid Disorder History of Any Multi-Drug Resistant Organisms: None Reported Past Surgical History: Coronary Bypass/CABG, Hysterectomy, Pacemaker Additional Past Surgical History / Comment(s): cataract Past Anesthesia/Blood Transfusion Reactions: No Reported Reaction Type of Cardiac Device: AICD Device Placement Date:: 2013 Past Psychological History: No Psychological Hx Reported Smoking Status: Never smoker Past Alcohol Use History: Occasional Past Drug Use History: None Reported Plan - Discharge Summary New Discharge Prescriptions: New Cephalexin [Keflex] 500 mg PO Q6HR #20 cap Acetaminophen Tab [Tylenol] 650 mg PO Q6HR PRN tab PRN Reason: Mild Pain Or Fever > 100.5 Continue Thyroid,Pork [[place] Thyroid] 90 mg PO DAILY Aspirin [Adult Low Dose Aspirin EC] 81 mg PO DAILY Rosuvastatin [Crestor] 20 mg PO HS Potassium Chloride ER [K-Dur 10] 10 meq PO DAILY Clopidogrel [Plavix] 75 mg PO DAILY Metoprolol Tartrate [Lopressor] 25 mg PO BID #60 tab Amiodarone [Cordarone] 200 mg PO DAILY Changed Furosemide [Lasix] 20 mg PO DAILY #0 Discharge Medication List Aspirin [Adult Low Dose Aspirin EC] 81 mg PO DAILY 08/06/22 [History] Thyroid,Pork [[place] Thyroid] 90 mg PO DAILY 08/06/22 [History] Metoprolol Tartrate [Lopressor] 25 mg PO BID #60 tab 09/04/23 [Rx] Amiodarone [Cordarone] 200 mg PO DAILY 05/01/24 [History] Clopidogrel [Plavix] 75 mg PO DAILY 05/01/24 [History] Potassium Chloride ER [K-Dur 10] 10 meq PO DAILY 05/01/24 [History] Rosuvastatin [Crestor] 20 mg PO HS 05/01/24 [History] Acetaminophen Tab [Tylenol] 650 mg PO Q6HR PRN tab 05/03/24 [Rx] Cephalexin [Keflex] 500 mg PO Q6HR #20 cap 05/03/24 [Rx] Furosemide [Lasix] 20 mg PO DAILY #0 05/03/24 [Rx] Follow up Appointment(s)/Referral(s): Alexis Navarrete DO [Primary Care Provider] - 1-2 days Pascual Stanford MD [STAFF PHYSICIAN] - 05/18/24 11:00 am [facility] Visiting Nurse, [NON-STAFF] - As Needed Patient Instructions/Handouts: Cellulitis (ED) Activity/Diet/Wound Care/Special Instructions: bhavik wraps both legs 9 am - 9 pm Discharge Disposition: HOME SELF-CARE
[2024-05-03] MEDS ORDERED: VANCOMYCIN TROUGH DUE 1 EACH MISC MISCELLANE ONE (20:00)
== END 2024-05-03 15:24 | disposition home or self-care (01) ==
LOC: EC 16:59 → 6NMEDSUR 19:57
PROVIDERS: ADMIT Hospitalist; ATTEND Hospitalist
DX: L03.115 Cellulitis of right lower limb (principal); D62 Acute posthemorrhagic anemia; I87.2 Venous insufficiency (chronic) (peripheral); I25.10 Atherosclerotic heart disease of native coronary artery without angina pectoris; I10 Essential (primary) hypertension; E78.5 Hyperlipidemia, unspecified; E03.9 Hypothyroidism, unspecified; Z79.890 Hormone replacement therapy; Z79.82 Long term (current) use of aspirin; Z79.02 Long term (current) use of antithrombotics/antiplatelets; Z79.899 Other long term (current) drug therapy; Z88.8 Allergy status to other drugs, medicaments and biological substances; Z91.02 Food additives allergy status; Z95.1 Presence of aortocoronary bypass graft; Z95.5 Presence of coronary angioplasty implant and graft
CPT/HCPCS: 96361 ×2; 96366 ×3; 96367 ×2; 96372 ×2; 96365; 96375; 99285; 93005; 85379; 83880; 80053 ×2; 83605; 83735 ×2; 84100 ×2; 84550; 84484; 85025 ×2; 85610; 85730; 86140; 87040; 84145; 73630; 93971; G0378 ×3; J3370; J2270; J0696; J1650 ×2; J0295 ×2; J1885

== ENCOUNTER 2024-05-11 07:57 | Inpatient (IN) | payer MEDICARE ==
[2024-05-11] MEDS ORDERED: VANCOMYCIN IV PER PHARMACY 1 EACH MISC MISCELLANE PRN (08:35)
--- NOTE | 2024-05-11 09:12 | ED ---
General Adult HPI - General Chief complaint: Extremity Injury, Lower Stated complaint: R Leg Infection Time Seen by Provider: 05/11/24 08:25 Source: patient, RN notes reviewed, old records reviewed Mode of arrival: wheelchair Limitations: no limitations - History of Present Illness Initial comments: Patient is a 74-year-old female presents emergency department complaining of right lower extremity infection. Recently had CABG last month and they did an investigation of the right lower extremity for possible saphenous vein grafting. Was recently admitted for cellulitis of the site. Was discharged home on oral antibiotics. It did improve however patient now has recurrent purulent drainage. Is currently not on antibiotics. Patient denies any fevers, chills, nausea, vomiting, chest pain, shortness of breath. Presents for further ev aluation at this time. Worsening redness around the wound site as well as purulent drainage from the superior and inferior aspect of the wound. Concerned that the infection has reoccurred. - Related Data Home Medications Medication Instructions Recorded Confirmed Aspirin [Adult Low Dose Aspirin EC] 81 mg PO DAILY 08/06/22 05/11/24 Thyroid,Pork [[place] Thyroid] 90 mg PO DAILY 08/06/22 05/11/24 Amiodarone [Cordarone] 200 mg PO DAILY 05/01/24 05/11/24 Clopidogrel [Plavix] 75 mg PO DAILY 05/01/24 05/11/24 Potassium Chloride ER [K-Dur 10] 10 meq PO DAILY 05/01/24 05/11/24 Rosuvastatin [Crestor] 20 mg PO HS 05/01/24 05/11/24 Previous Rx's Medication Instructions Recorded Metoprolol Tartrate [Lopressor] 25 mg PO BID #60 tab 09/04/23 Acetaminophen Tab [Tylenol] 650 mg PO Q6HR PRN tab 05/03/24 Furosemide [Lasix] 20 mg PO DAILY #0 05/03/24 Allergies Allergy/AdvReac Type Severity Reaction Status Date / Time TRAVIS Inhibitors Allergy Anaphylaxis Verified 05/11/24 11:35 levothyroxine sodium Allergy Swelling Verified 05/11/24 11:35 [From Synthroid] beta blockers Allergy Anaphylaxis Uncoded 05/11/24 11:35 Preservatives/synthetic Allergy Swelling Uncoded 05/11/24 11:35 medications Review of Systems ROS Statement: Those systems with pertinent positive or pertinent negative responses have been documented in the HPI. Review of Systems: CONST: Denies fever EYES: Denies blurry vision ENT: Denies nasal congestion C/V: Denies Chest pain RESP: Denies shortness of breath GI: Denies abdominal pain : Denies dysuria SKIN: Endorses purulent drainage and erythema around wound on right lower ex tremity. MSK: Denies joint pain. NEURO: Denies headache ROS Other: All systems not noted in ROS Statement are negative. Past Medical History Past Medical History: Coronary Artery Disease (CAD), Hypertension, Thyroid Disorder Additional Past Medical History / Comment(s): Osteoporosis, History of Any Multi-Drug Resistant Organisms: None Reported Past Surgical History: Coronary Bypass/CABG, Hysterectomy, Pacemaker Additional Past Surgical History / Comment(s): cataract, open heart Past Anesthesia/Blood Transfusion Reactions: No Reported Reaction Type of Cardiac Device: AICD Device Placement Date:: 2013 Past Psychological History: No Psychological Hx Reported Smoking Status: Never smoker Past Alcohol Use History: Occasional Past Drug Use History: None Reported - Past Family History Brother(s) Family Medical History: Cancer, Congestive Heart Failure (CHF) Father Family Medical History: Cancer, Congestive Heart Failure (CHF) General Exam - General Exam Comments Initial Comments: General: Appears in no acute distress. HEAD: Normal with no signs of head trauma. EYES: PERRLA, EOMI, conjunctiva normal, no discharge. ENT: Hearing grossly intact, normal oropharynx. RESPIRATORY: Clear breath sounds bilaterally. No wheezes, rales, or rhonchi. C/V: Regular rate and rhythm. S1 and S2 auscultated, chronic mild lower extremity edema that is symmetrical., peripheral pulses 2+ and intact throughout ABD: Abd is soft, nontender, nondistended EXT: Normal range of motion, no obvious deformity SKIN: Some purulent drainage noted over the superior and inferior aspect of a large surgical incision on the right leg. No saphenous graft was removed from this leg was just exploration. Concern for recurrent cellulitis. NEURO: Alert and oriented x 4. Limitations: no limitations Course Vital Signs 05/11/24 05/11/24 05/11/24 07:59 09:44 11:15 Temperature 97.9 F Pulse Rate 80 80 84 Respiratory 18 16 16 Rate Blood Pressure 133/76 142/90 148/81 O2 Sat by Pulse 98 99 97 Oximetry 05/11/24 12:32 Temperature 97.8 F Pulse Rate 81 Respiratory 18 Rate Blood Pressure 141/81 O2 Sat by Pulse 99 Oximetry Medical Decision Making - Medical Decision Making Was pt. sent in by a medical professional or institution (TATUM Rosales, CARDIOVASCULAR RADIOLOGIC TECHNOLOGIST, urgent care, hospital, or custodial...) When possible be specific @ -No Did you speak to anyone other than the patient for history (EMS, parent, family, police, friend...)? What history was obtained from this source @ -No Did you review nursing and triage notes (agree or disagree)? Why? @ -I reviewed and agree with nursing and triage notes Were old charts reviewed (outside hosp., previous admission, EMS record, old EKG, old radiological studies, urgent care reports/EKG's, custodial records)? Report findings @ -Old charts reviewed from prior admission within the last 2 weeks for similar complaints. Was discharged home on Keflex. Differential Diagnosis (chest pain, altered mental status, abdominal pain women, abdominal pain men, vaginal bleeding, weakness, fever, dyspnea, syncope, headache, dizziness, GI bleed, back pain, seizure, CVA, palpatations, mental health, musculoskeletal)? @ -Cellulitis, abscess, wound infection. This list is not all inclusive. EKG interpreted by me (3pts min.). @ -None done X-rays interpreted by me (1pt min.). @ -Tib-fib x-ray reveals no evidence of osteomyelitis. CT interpreted by me (1pt min.). @ -None done U/S interpreted by me (1pt. min.). @ -Ultrasound reveals some pockets of fluid which could represent abscess. What testing was considered but not performed or refused? (CT, X-rays, U/S, labs)? Why? @ -None What meds were considered but not given or refused? Why? @ -None Did you discuss the management of the patient with other professionals (professionals i.e. TATUM Rosales, CARDIOVASCULAR RADIOLOGIC TECHNOLOGIST, lab, RT, psych nurse, social insurance specialist, scale operator, teacher, chief creative officer, catalytic case operator)? Give summary @ -No Was smoking cessation discussed for >3mins.? @ -No Was critical care preformed (if so, how long)? @ -No Were there social determinants of health that impacted care today? How? (Homelessness, low income, unemployed, alcoholism, drug addiction, transportation, low edu. Level, literacy, decrease access to med. care, skilled nursing, rehab)? @ -No Was there de-escalation of care discussed even if they declined (Discuss DNR or withdrawal of care, Hospice)? DNR status @ -No What co-morbidities impacted this encounter? (DM, HTN, Smoking, COPD, CAD, Cancer, CVA, ARF, Chemo, Hep., AIDS, mental health diagnosis, sleep apnea, morbid obesity)? @ -None Was patient admitted / discharged? Hospital course, mention meds given and route, prescriptions, significant lab abnormalities, going to OR and other pertinent info. @ -Patient presents with recurrence of what appears to be cellulitis with purulent drainage from an older wound. Was recently admitted here for similar complaint and discharged home on oral antibiotics which have stopped but patient has recurrence of the issue. Vital signs within acceptable limits. We will obtain wound cultures, blood cultures, start the patient on IV vancomycin, and obtain basic labs. X-ray will obtain to evaluate for osteomyelitis. Ultrasound will be obtained to evaluate for abscess. Patient in agreement this plan. Patient will likely be admitted. No IV fluids at this time as patient does have a history of CHF, CABG I do not wish to overload the patient at this time with fluids. Imaging remarkable for findings concerning for possible abscess on ultrasound. Laboratory studies remarkable for no evidence of leukocytosis. Lactic acid normal. CMP was canceled and reordered. Still pending at this time. Somehow it was canceled again and was not drawn while patient remained in the ER. I did reorder it once patient was on the floor. On reevaluation I discussed the findings with the patient. She will be admitted at this time for IV antibiotics. I will consult infectious disease as well as Dr. Stanford. Patient was in agreement this plan. I spoke with the admitting physician, Dr. Cheng who accepted the admission. Undiagnosed new problem with uncertain prognosis? @ -No Drug Therapy requiring intensive monitoring for toxicity (Heparin, Nitro, Insulin, Cardizem)? @ -No Were any procedures done? @ -No Diagnosis/symptom? @ -Right leg wound, cellulitis, failed outpatient management Acute, or Chronic, or Acute on Chronic? @ -Acute Uncomplicated (without systemic symptoms) or Complicated (systemic symptoms)? @ -Complicated Side effects of treatment? @ -None Exacerbation, Progression, or Severe Exacerbation] @ -No Poses a threat to life or bodily function? @ -Yes - Lab Data Result diagrams: 05/11/24 08:40 Lab Results 05/11/24 05/11/24 Range/Units 08:40 09:30 WBC 7.8 (3.8-10.6) k/uL RBC 4.13 (3.80-5.40) m/uL Hgb 11.9 (11.4-16.0) gm/dL Hct 38.6 (34.0-46.0) % MCV 93.5 (80.0-100.0) fL MCH 28.8 (25.0-35.0) pg MCHC 30.7 L (31.0-37.0) g/dL RDW 15.0 (11.5-15.5) % Plt Count 304 (150-450) k/uL MPV 7.4 Neutrophils % 55 % Lymphocytes % 25 % Monocytes % 5 % Eosinophils % 12 % Basophils % 1 % Neutrophils # 4.3 (1.3-7.7) k/uL Lymphocytes # 1.9 (1.0-4.8) k/uL Monocytes # 0.4 (0-1.0) k/uL Eosinophils # 1.0 H (0-0.7) k/uL Basophils # 0.0 (0-0.2) k/uL Hypochromasia Marked Plasma Lactic Acid Jani 1.1 (0.7-2.0) mmol/L Disposition Clinical Impression: Leg wound, right, Cellulitis Disposition: ADMITTED IP TO THIS HOSP Condition: Stable Time of Disposition: 10:45
[2024-05-11 09:18] LABS: Basophils % (A) 1 %; Eosinophils % (A) 12 %; HCT 38.6 % (34.0-46.0); HGB 11.9 gm/dL (11.4-16.0); Hypochromasia Marked; Lymphocytes # (A) 1.9 k/uL (1.0-4.8); Lymphocytes % (A) 25 %; MCH 28.8 pg (25.0-35.0); MCHC 30.7 g/dL (31.0-37.0); MCV 93.5 fL (80.0-100.0); Mean Platelet Volume 7.4; Monocytes # (A) 0.4 k/uL (0-1.0); Monocytes % (A) 5 %; Neutrophils # (A) 4.3 k/uL (1.3-7.7); Neutrophils % (A) 55 %; Platelet Count 304 k/uL (150-450); RBC 4.13 m/uL (3.80-5.40); WBC 7.8 k/uL (3.8-10.6)
--- NOTE | 2024-05-11 09:29 | US ---
EXAMINATION TYPE: US extremity nonvasc mass RT DATE OF EXAM: 05/11/2024 COMPARISON: NONE CLINICAL INDICATION: Female, 74 years old with history of eval for abscess; Evaluate for abscess with in the right leg. *Patient states she had open heart surgery on 04/11/2024 and they tried to take a v ein from the right leg at this area but were unsuccessful. TECHNIQUE: Scanned right leg at areas of concern. FINDINGS: Scanned right leg at the medial knee level, below the knee and within the calf at the area of wound. *Complex fluid with solid components seen at the medial knee level at bruising measuring 4.0 x 3.9 x 1.7 cm. Smaller fluid area seen anteriorly with tract in between areas. Edema with no other findings seen below the knee level. IMPRESSION: 1. Complex fluid collection as discussed above. Abscess is not excluded.
[2024-05-11] MEDS: VANCOMYCIN 1,250 MG in SODIUM CHLORIDE 0.9% 250 ML IVPB STA (09:42)
--- NOTE | 2024-05-11 10:01 | XR ---
EXAMINATION TYPE: XR tibia fibula RT DATE OF EXAM: 05/11/2024 CLINICAL HISTORY: pain TECHNIQUE: AP and lateral images of the right tibia and fibula are obtained. COMPARISON: None. FINDINGS: There is no acute fracture/dislocation evident. The joint spaces appear within normal tubbs its. The overlying soft tissue appears unremarkable. IMPRESSION: There is no acute fracture or dislocation seen. ICD 10 NO FRACTURE, INITIAL EVALUATION
[2024-05-11] MEDS ORDERED: NALOXONE 0.4 MG/ML 1 ML VIAL IV PRN (10:33)
[2024-05-11] MEDS ORDERED: ONDANSETRON 4 MG/2 ML VIAL IVP PRN (14:43)
[2024-05-11] MEDS ORDERED: MELATONIN 3 MG TABLET PO PRN (14:43)
[2024-05-11] MEDS ORDERED: ALPRAZolam 0.25 MG TAB PO PRN (14:43)
[2024-05-11] MEDS ORDERED: CALCIUM CARBONATE 500 MG CHEWABLE PO PRN (14:43)
[2024-05-11] MEDS ORDERED: LACTULOSE 20 GM/30 ML CUP PO PRN (14:43)
[2024-05-11 14:44] LABS: ALT 38 U/L (4-34); AST 54 U/L (14-36); African American GFR (CKD) 70 (>60 ml/min/1.73 sqM); Albumin 3.8 g/dL (3.5-5.0); Albumin/Globulin Ratio 1.2; Alkaline Phosphatase 109 U/L (38-126); Anion Gap 9 mmol/L; Blood Urea Nitrogen 12 mg/dL (7-17); Calcium 8.7 mg/dL (8.4-10.2); Carbon Dioxide 24 mmol/L (22-30); Chloride 108 mmol/L (98-107); Globulin 3.2 g/dL; Glucose 150 mg/dL (74-99); Non-African American GFR(CKD) 60 (>60 ml/min/1.73 sqM); Potassium 3.9 mmol/L (3.5-5.1); Sodium 141 mmol/L (137-145); Total Bilirubin 0.6 mg/dL (0.2-1.3)
--- NOTE | 2024-05-11 14:52 | P.HPIM ---
History of Present Illness H&P Date: 05/11/24 Chief Complaint: Infection at vein removal site This is a pleasant 74-year-old patient follows with Dr. Navarrete. Patient follows at [facility]. Dr. Lujan-mental retardation nurse, Dr. Gale, cardiothoracic surgeon, -EP. Patient's hospital from May 02 through May 03. recently underwent a coronary bypass and [facility]. Discharged from there on April 22. They did try patient's right leg veins but ended ultimately up to use internal mammary artery. Presented with some swelling of both lower extremity right greater than left. It is the right leg that try to take the veins from. Patient had noticed that around the right big toe and proximal LAD had become rather painful tender and swollen. Patient had no fever and chills and decided to come in. No prior history of gout. Denies any fever and chills. Tired. Appetite had decreased a bit. No change in bowel pattern. Received IV ceftriaxone and vancomycin in the ER. Pain swelling redness much better next morning. Patient seen by Dr. Arciniega from vascular. Patient was discharged on Keflex for 5 days. Patient 2 days ago noticed some drainage from the right leg below the knee at the vein stripping site some pus extraction. No fever no chills. Appetite fair. Admitted for the same. Review of systems: GEN.: None EYES: None HEENT: None NECK: None RESPIRATORY: None CARDIOVASCULAR: None GASTROINTESTINAL: None GENITOURINARY: None MUSCULOSKELETAL: As above LYMPHATICS: None HEMATOLOGICAL: None PSYCHIATRY: None NEUROLOGICAL: None Social history: Nonsmoker. Lives alone. Retired from working at [employer]. Alcohol occasionally. Physical examination: VITAL SIGNS: 1.5, 86, 18, 128 x 76, 97% room air GENERAL: BMI 25.2, sitting up in bed sternal incisions healing well EYES: Pupils equal. Conjunctiva normal. HEENT: External appearance of nose and ears normal, oral cavity grossly normal. NECK: JVD not raised; masses not palpable. HEART: First and second heart sounds are normal; no edema. LUNGS: Respiratory rate normal; clear to auscultation. ABDOMEN: Soft, nontender, liver spleen not palpable, no masses palpable. PSYCH: Alert and oriented x3; mood and affect normal. MUSCULOSKELETAL: Area of wound right lower extremity below the knee with some area of drainage. INVESTIGATIONS, reviewed in the clinical context: May 19: White count 7.8 hemoglobin 9 platelets 304 potassium 3.9 creatinine 0.93 Ultrasound right lower extremity: Complex fluid with solid component seen at medial knee level 4/cm x 3.9 x 1.7 cm.-Report is complex fluid collection. Assessment and plan: -Patient having some drainage from the right lower extremity where vein stripping was carried out following recent coronary bypass. Patient's hospital recently was treated with Keflex. Seen by vascular surgery Dr. Stanford. Now presents with some pus drainage. And a complex fluid collection IV vancomycin Consultations Dr. Stanford from vascular and ID. -Acute postprocedure blood loss anemia likely from recent coronary bypass -Bilateral lower extremity venous insufficiency right greater than left -CAD, prior stents Plavix. Lopressor. Aspirin. Crestor -CABG patient discharged from the hospital on April 22 Sternal incision wound healing well -Essential hypertension Lopressor 25 mg twice a day. -Hyperlipidemia Crestor -Hypothyroid [place] Thyroid -Full code Care was discussed with the patient. Questions answered. Past Medical History Past Medical History: Coronary Artery Disease (CAD), Hypertension, Thyroid Disorder Additional Past Medical History / Comment(s): Osteoporosis, History of Any Multi-Drug Resistant Organisms: None Reported Past Surgical History: Coronary Bypass/CABG, Hysterectomy, Pacemaker Additional Past Surgical History / Comment(s): cataract, open heart Past Anesthesia/Blood Transfusion Reactions: No Reported Reaction Type of Cardiac Device: AICD Device Placement Date:: 2013 Past Psychological History: No Psychological Hx Reported Smoking Status: Never smoker Past Alcohol Use History: Occasional Past Drug Use History: None Reported - Past Family History Brother(s) Family Medical History: Cancer, Congestive Heart Failure (CHF) Father Family Medical History: Cancer, Congestive Heart Failure (CHF) Medications and Allergies Home Medications Medication Instructions Recorded Confirmed Type Aspirin [Adult Low Dose Aspirin EC] 81 mg PO DAILY 08/06/22 05/11/24 History Thyroid,Pork [[place] Thyroid] 90 mg PO DAILY 08/06/22 05/11/24 History Metoprolol Tartrate [Lopressor] 25 mg PO BID #60 tab 09/04/23 05/11/24 Rx Amiodarone [Cordarone] 200 mg PO DAILY 05/01/24 05/11/24 History Clopidogrel [Plavix] 75 mg PO DAILY 05/01/24 05/11/24 History Potassium Chloride ER [K-Dur 10] 10 meq PO DAILY 05/01/24 05/11/24 History Rosuvastatin [Crestor] 20 mg PO HS 05/01/24 05/11/24 History Acetaminophen Tab [Tylenol] 650 mg PO Q6HR PRN tab 05/03/24 05/11/24 Rx Furosemide [Lasix] 20 mg PO DAILY #0 05/03/24 05/11/24 Rx Allergies Allergy/AdvReac Type Severity Reaction Status Date / Time TRAVIS Inhibitors Allergy Anaphylaxis Verified 05/11/24 11:35 levothyroxine sodium Allergy Swelling Verified 05/11/24 11:35 [From Synthroid] beta blockers Allergy Anaphylaxis Uncoded 05/11/24 11:35 Preservatives/synthetic Allergy Swelling Uncoded 05/11/24 11:35 medications Physical Exam Vitals: Vital Signs Temp Pulse Pulse Resp BP BP Pulse Ox 05/11/24 13:15 97.5 F L 86 18 128/76 97 05/11/24 12:32 97.8 F 81 18 141/81 99 05/11/24 11:15 84 16 148/81 97 05/11/24 09:44 80 16 142/90 99 05/11/24 07:59 97.9 F 80 18 133/76 98 Intake and Output 05/10/24 05/11/24 05/11/24 22:59 06:59 14:59 Other: Weight 64.41 kg Results CBC & Chem 7: 05/11/24 08:40 Labs: Abnormal Lab Results - Last 24 Hours (Table) 05/11/24 Range/Units 08:40 MCHC 30.7 L (31.0-37.0) g/dL Eosinophils # 1.0 H (0-0.7) k/uL Thrombosis Risk Factor Assmnt - Choose All That Apply Each Factor Represents 1 point: Swollen legs (current) Each Risk Factor Represents 3 Points: Age 75 years or older Thrombosis Risk Factor Assessment Total Risk Factor Score: 4 Thrombosis Risk Factor Assessment Level: Moderate Risk
[2024-05-11] MEDS: LIDOCAINE 1% INJ 10MG/ML (20 ML MDV) ONE (15:21)
--- NOTE | 2024-05-11 15:44 | P.GSCN ---
History of Present Illness History of present illness: 74-year-old pleasant female patient had a history of coronary artery bypass graft done at [facility]. Patient has a wound on the right lower EXTR extremity will patient had harvested greater saphenous vein which was not usable patient to use intermammary artery for the bypass. He came today with swelling of the right lower extremity on previous admission patient had a venous ultrasound there was however evidence for deep vein thrombosis. Patient has no fever or chills medical history history of hypertension coronary artery disease post CABG Chest examination chest is is clear good in both lungs. Second sound present Abdomen soft nontender vascular femorals are 1+ bilateral bilateral lower extremity there is open wound from the previous incision with some mild drainage noted with some devitalized tissue present along the incisions site sound report reviewed Plan is debridement of the wound with deep culture Past Medical History Past Medical History: Coronary Artery Disease (CAD), Hypertension, Thyroid Disorder Additional Past Medical History / Comment(s): Osteoporosis, History of Any Multi-Drug Resistant Organisms: None Reported Past Surgical History: Coronary Bypass/CABG, Hysterectomy, Pacemaker Additional Past Surgical History / Comment(s): cataract, open heart Past Anesthesia/Blood Transfusion Reactions: No Reported Reaction Type of Cardiac Device: AICD Device Placement Date:: 2013 Past Psychological History: No Psychological Hx Reported Smoking Status: Never smoker Past Alcohol Use History: Occasional Past Drug Use History: None Reported - Past Family History Brother(s) Family Medical History: Cancer, Congestive Heart Failure (CHF) Father Family Medical History: Cancer, Congestive Heart Failure (CHF) Medications and Allergies Home Medications Medication Instructions Recorded Confirmed Type Aspirin [Adult Low Dose Aspirin EC] 81 mg PO DAILY 08/06/22 05/11/24 History Thyroid,Pork [[place] Thyroid] 90 mg PO DAILY 08/06/22 05/11/24 History Metoprolol Tartrate [Lopressor] 25 mg PO BID #60 tab 09/04/23 05/11/24 Rx Amiodarone [Cordarone] 200 mg PO DAILY 05/01/24 05/11/24 History Clopidogrel [Plavix] 75 mg PO DAILY 05/01/24 05/11/24 History Potassium Chloride ER [K-Dur 10] 10 meq PO DAILY 05/01/24 05/11/24 History Rosuvastatin [Crestor] 20 mg PO HS 05/01/24 05/11/24 History Acetaminophen Tab [Tylenol] 650 mg PO Q6HR PRN tab 05/03/24 05/11/24 Rx Furosemide [Lasix] 20 mg PO DAILY #0 05/03/24 05/11/24 Rx Allergies Allergy/AdvReac Type Severity Reaction Status Date / Time TRAVIS Inhibitors Allergy Anaphylaxis Verified 05/11/24 11:35 levothyroxine sodium Allergy Swelling Verified 05/11/24 11:35 [From Synthroid] beta blockers Allergy Anaphylaxis Uncoded 05/11/24 11:35 Preservatives/synthetic Allergy Swelling Uncoded 05/11/24 11:35 medications Surgical - Exam Vital Signs Temp Pulse Resp BP Pulse Ox 97.9 F 80 18 133/76 98 05/11/24 07:59 05/11/24 07:59 05/11/24 07:59 05/11/24 07:59 05/11/24 07:59 Results - Labs 05/11/24 08:40 05/11/24 14:21 Abnormal Lab Results - Last 24 Hours (Table) 05/11/24 05/11/24 Range/Units 08:40 14:21 MCHC 30.7 L (31.0-37.0) g/dL Eosinophils # 1.0 H (0-0.7) k/uL Chloride 108 H (98-107) mmol/L Glucose 150 H (74-99) mg/dL AST 54 H (14-36) U/L ALT 38 H (4-34) U/L Diabetes panel 05/11/24 Range/Units 14:21 Sodium 141 (137-145) mmol/L Potassium 3.9 (3.5-5.1) mmol/L Chloride 108 H (98-107) mmol/L Carbon Dioxide 24 (22-30) mmol/L BUN 12 (7-17) mg/dL Creatinine 0.93 (0.52-1.04) mg/dL Glucose 150 H (74-99) mg/dL Calcium 8.7 (8.4-10.2) mg/dL AST 54 H (14-36) U/L ALT 38 H (4-34) U/L Alkaline Phosphatase 109 (38-126) U/L Total Protein 7.0 (6.3-8.2) g/dL Albumin 3.8 (3.5-5.0) g/dL Calcium panel 05/11/24 Range/Units 14:21 Calcium 8.7 (8.4-10.2) mg/dL Albumin 3.8 (3.5-5.0) g/dL Pituitary panel 05/11/24 Range/Units 14:21 Sodium 141 (137-145) mmol/L Potassium 3.9 (3.5-5.1) mmol/L Chloride 108 H (98-107) mmol/L Carbon Dioxide 24 (22-30) mmol/L BUN 12 (7-17) mg/dL Creatinine 0.93 (0.52-1.04) mg/dL Glucose 150 H (74-99) mg/dL Calcium 8.7 (8.4-10.2) mg/dL Adrenal panel 05/11/24 Range/Units 14:21 Sodium 141 (137-145) mmol/L Potassium 3.9 (3.5-5.1) mmol/L Chloride 108 H (98-107) mmol/L Carbon Dioxide 24 (22-30) mmol/L BUN 12 (7-17) mg/dL Creatinine 0.93 (0.52-1.04) mg/dL Glucose 150 H (74-99) mg/dL Calcium 8.7 (8.4-10.2) mg/dL Total Bilirubin 0.6 (0.2-1.3) mg/dL AST 54 H (14-36) U/L ALT 38 H (4-34) U/L Alkaline Phosphatase 109 (38-126) U/L Total Protein 7.0 (6.3-8.2) g/dL Albumin 3.8 (3.5-5.0) g/dL
--- NOTE | 2024-05-11 15:47 | P.PCN ---
Description of Procedure: Preop diagnosis infected wound post great saphenous vein exploration for bypass Procedure right leg was prepped and draped in Prestel manner 1% lidocaine for infiltrated had a incision right lower extremity at length of the incision is abo for 1/2 cm in length and 1.2 cm in depth debridement was performed down to subcu tissue and the fat there was some devitalized tissue which was removed there was fluid drainage noted no active pus was noted tissue was sent for deep culture wound was irrigated with saline and extra silver rope was placed dressing applied patient taught the procedure well
[2024-05-11] MEDS: ENOXAPARIN 40 MG/0.4 ML SYRINGE SQ SCH (16:15)
[2024-05-11] MEDS: ATORVASTATIN 40 MG TAB PO SCH (20:16)
[2024-05-11] MEDS: METOPROLOL TARTRATE 25 MG TAB PO SCH (20:16)
[2024-05-11] MEDS ORDERED: HEPARIN SODIUM,PORCINE 5,000 UNIT/ML 1 ML VIAL SQ SCH (21:00)
[2024-05-11] MEDS: CEFEPIME 2 GM in SODIUM CHLORIDE 0.9% 100 ML IVPB SCH (23:54)
[2024-05-12] MEDS: THYROID, PORK 30 MG TAB PO SCH (05:56)
[2024-05-12] MEDS: ASPIRIN 81 MG PO SCH (09:13)
[2024-05-12] MEDS: FUROSEMIDE 20 MG TAB PO SCH (09:13)
[2024-05-12] MEDS: CLOPIDOGREL 75 MG TAB PO SCH (09:13)
[2024-05-12] MEDS: POTASSIUM CHLORIDE ER 10 MEQ TAB.ER.PRT PO SCH (09:13)
[2024-05-12] MEDS: AMIODARONE 200 MG TAB PO SCH (09:13)
[2024-05-12] MEDS: VANCOMYCIN 1,250 MG in SODIUM CHLORIDE 0.9% 250 ML IVPB SCH (09:31)
--- NOTE | 2024-05-12 10:11 | P.CONS ---
History of Present Illness - Reason for Consult Consult date: 05/11/24 - History of Present Illness Patient is a 74-year-old -[place] female with a past medical history significant for hypertension hypothyroidism coronary artery disease in this patient who is status post recent coronary bypass grafting at [facility] patient mention did try to take a vein from the right lower extremity however considered to be not suitable as the incision was sealed off subsequently patient noticing having increasing swelling and redness and some drainage from the right lower extremity patient was recently admitted at this facility from 05/01/2024 till 05/03/2024 concerning for possible cellulitis patient was subsequent discharged on oral Keflex now presenting back to the hospital with worsening swelling redness and pain patient describes the pain to be sharp moderate in intensity without any patient with associated swelling redness and some drainage to the right lower extremity patient denies having any high-grade fever no URI symptoms no nausea vomiting no abdominal pain and no diarrhea on presentation to the hospital patient was afebrile patient was not tachycardic hypotensive or hypoxic did have a white count of 7.8 creatinine 0.93 liver isms mildly elevated Past Medical History Past Medical History: Coronary Artery Disease (CAD), Hypertension, Thyroid Disorder Additional Past Medical History / Comment(s): Osteoporosis, History of Any Multi-Drug Resistant Organisms: None Reported Past Surgical History: Coronary Bypass/CABG, Hysterectomy, Pacemaker Additional Past Surgical History / Comment(s): cataract, open heart Past Anesthesia/Blood Transfusion Reactions: No Reported Reaction Type of Cardiac Device: AICD Device Placement Date:: 2013 Past Psychological History: No Psychological Hx Reported Smoking Status: Never smoker Past Alcohol Use History: Occasional Past Drug Use History: None Reported - Past Family History Brother(s) Family Medical History: Cancer, Congestive Heart Failure (CHF) Father Family Medical History: Cancer, Congestive Heart Failure (CHF) Medications and Allergies Home Medications Medication Instructions Recorded Confirmed Type Aspirin [Adult Low Dose Aspirin EC] 81 mg PO DAILY 08/06/22 05/11/24 History Thyroid,Pork [[place] Thyroid] 90 mg PO DAILY 08/06/22 05/11/24 History Metoprolol Tartrate [Lopressor] 25 mg PO BID #60 tab 09/04/23 05/11/24 Rx Amiodarone [Cordarone] 200 mg PO DAILY 05/01/24 05/11/24 History Clopidogrel [Plavix] 75 mg PO DAILY 05/01/24 05/11/24 History Potassium Chloride ER [K-Dur 10] 10 meq PO DAILY 05/01/24 05/11/24 History Rosuvastatin [Crestor] 20 mg PO HS 05/01/24 05/11/24 History Acetaminophen Tab [Tylenol] 650 mg PO Q6HR PRN tab 05/03/24 05/11/24 Rx Furosemide [Lasix] 20 mg PO DAILY #0 05/03/24 05/11/24 Rx Allergies Allergy/AdvReac Type Severity Reaction Status Date / Time TRAVIS Inhibitors Allergy Anaphylaxis Verified 05/11/24 11:35 levothyroxine sodium Allergy Swelling Verified 05/11/24 11:35 [From Synthroid] beta blockers Allergy Anaphylaxis Uncoded 05/11/24 11:35 Preservatives/synthetic Allergy Swelling Uncoded 05/11/24 11:35 medications Physical Exam Vitals: Vital Signs Temp Pulse Resp BP Pulse Ox 05/11/24 11:15 84 16 148/81 97 05/11/24 09:44 80 16 142/90 99 05/11/24 07:59 97.9 F 80 18 133/76 98 Intake and Output 05/10/24 05/11/24 05/11/24 22:59 06:59 14:59 Other: Weight 64.41 kg Results CBC & Chem 7: 05/11/24 08:40 05/11/24 14:21 Labs: Abnormal Lab Results - Last 24 Hours (Table) 05/11/24 Range/Units 08:40 MCHC 30.7 L (31.0-37.0) g/dL Eosinophils # 1.0 H (0-0.7) k/uL Assessment and Plan Plan: 1patient presented hospital with a right lower extremity pain swelling and tenderness in this patient who recently did have surgery to the right lower extremity for possible successful grafting which was not done ultrasound suspicious for a complex fluid collection possible abscess versus seroma failing outpatient treatment. 2await vascular surgery evaluation for I&D and deep culture. 3we will continue patient on vancomycin and cefepime for the gram-negative coverage while waiting for the culture to finalize We will follow on clinical condition and cultures to further adjust medication if needed Thank you for this consultation we will follow the patient along with you Dictation was produced using [employer] dictation software. please excuse any grammatical, word or spelling errors. Time with Patient: Greater than 30
[2024-05-12 10:44] LABS: BUN/Creat Ratio 15.36 Ratio (12.00-20.00); Blood Urea Nitrogen 16.9 mg/dL (9.0-27.0); Carbon Dioxide 21.8 mmol/L (21.6-31.8); Chloride 107 mmol/L (96-109); Glucose 99 mg/dL (70-110); Potassium 3.8 mmol/L (3.5-5.5); Sodium 141 mmol/L (135-145)
[2024-05-12 10:45] LABS: ALT 32 U/L (8-44); AST 39 U/L (13-35); Albumin 3.4 g/dL (3.8-4.9); Albumin/Globulin Ratio 1.31 Ratio (1.60-3.17); Alkaline Phosphatase 96 U/L (41-126); Basophils # (A) 0.03 X 10*3/uL (0.00-0.10); Basophils % (A) 0.5 %; Calcium 8.3 mg/dL (8.7-10.3); Eosinophils # (A) 0.78 X 10*3/uL (0.04-0.35); Eosinophils % (A) 12.1 %; Globulin 2.6 g/dL (1.6-3.3); HCT 30.9 % (37.2-46.3); HGB 9.6 g/dL (12.0-15.0); Lymphocytes # (A) 1.74 X 10*3/uL (0.90-5.00); Lymphocytes % (A) 26.9 %; MCH 28.4 pg (27.0-32.0); MCHC 31.1 g/dL (32.0-37.0); MCV 91.4 FL (80.0-97.0); Mean Platelet Volume 9.1 FL (9.5-12.2); Monocytes # (A) 0.53 X 10*3/uL (0.20-1.00); Monocytes % (A) 8.2 %; NRBC Per 100 WBC 0 X 10*3/uL (0.00-0.01); Neutrophils # (A) 3.38 X 10*3/uL (1.80-7.70); Neutrophils % (A) 52.1 %; Platelet Count 220 X 10*3/uL (140-440); RBC 3.38 X 10*6/uL (4.10-5.20); Total Bilirubin 0.4 mg/dL (0.3-1.2); WBC 6.47 X 10*3/uL (4.50-10.00)
--- NOTE | 2024-05-12 15:37 | CDI ---
Documentation Clarification Form Date: 05/12/2024 02:52:15 PM From: Elodia Drummond Phone: [phone] Admit Date: 05/11/2024 10:33:00 AM Patient Name: Breann Meyers Visit Number: [id number] Discharge Date: ATTENTION: The Clinical Documentation Specialists (CDI) and [facility] Coding Staff appreciate your assistance in clarifying documentation. Please respond to the clarification below the line at the bottom and electronically sign. The CDI & [facility] Coding staff will review the response and follow-up if needed. Please note: Queries are made part of the Legal Health Record. If you have any questions, please contact the author of this message via ITS. Dr. Pascual Deutsch debridement is documented Preop diagnosis infected wound post great saphenous vein exploration for bypass. Additional clarification regarding the procedure is requested some mild drainage with some devitalized tissue present. . History/Risk Factors: Coronary Artery Disease, Hypertension, Thyroid Disorder Clinical Indicators: 74-year-old recently underwent a coronary bypass last month and they did an investigation of the right lower extremity for possible saphenous vein harvested. 05/11 Procedure note: incision right lower extremity at length of the incision is abo for 1/2 cm in length and 1.2 cm in depth debridement was performed down to subcu tissue and the fat there was some devitalized tissue which was removed there was fluid drainage noted no active pus was noted tissue was sent for deep culture wound was irrigated with saline and extra silver rope was placed dressing applied. Treatment: Cefepime HCL 2 GM IVPB Q 12 HR Lasix 20 MG PO Daily Vancomycin HCL 1,2500 MG IVPB Q 24 HR Dressing change per orders Please clarify the type of procedure performed: [ ] Excisional debridement (the removal of necrotic, devitalized tissue or slough by means of cutting away of tissue) [ ] Non-excisional debridement (the removal of necrotic, devitalized tissue or slough by means of flushing, brushing, or washing. (Irrigation) [ ] Other; please specify [ ] Unable to determine Five elements required for accurate and compliant documentation of a debridement: Technique used (e.g., excisional, excised, cutting, brushing, jet lavage etc.) Instrument(s) used (e.g., scalpel, curette, etc.) Nature of the tissue removed (e.g., necrotic, devitalized tissues, non-viable tissue, etc.) Appearance and size of the wound (e.g., down to fresh bleeding tissue, 7cm x 10cm, etc.) Depth of the debridement* (e.g., skin, subcutaneous tissue, fascia, muscle, bone, etc.) (Template Last Revised: January 2021) MTDD
--- NOTE | 2024-05-12 16:49 | P.PN ---
Progress Note - Text Progress Note Date: 05/12/24 Chief Complaint: Infection at vein removal site This is a pleasant 74-year-old patient follows with Dr. Navarrete. Patient follows at [facility]. Dr. Lujan-sky line yarder, Dr. Gale, cardiothoracic surgeon, -EP. Patient's hospital from May 02 through May 03. recently underwent a coronary bypass and [facility]. Discharged from there on April 22. They did try patient's right leg veins but ended ultimately up to use internal mammary artery. Presented with some swelling of both lower extremity right greater than left. It is the right leg that try to take the veins from. Patient had noticed that around the right big toe and pr oximal LAD had become rather painful tender and swollen. Patient had no fever and chills and decided to come in. No prior history of gout. Denies any fever and chills. Tired. Appetite had decreased a bit. No change in bowel pattern. Received IV ceftriaxone and vancomycin in the ER. Pain swelling redness much better next morning. Patient seen by Dr. Arciniega from vascular. Patient was discharged on Keflex for 5 days. Patient 2 days ago noticed some drainage from the right leg below the knee at the vein stripping site some pus extraction. No fever no chills. Appetite fair. Admitted for the same. May 12: Up in a recliner. Tolerating diet. No fever no chills. Dressing over the right leg. On IV cefepime and vancomycin. Cultures growing Pseudomonas aeruginosa and gram-negative bacilli. Active Medications Acetaminophen (Acetaminophen Tab 325 Mg Tab) 650 mg PO Q6HR PRN PRN Reason: Mild Pain or Fever > 100.5 Alprazolam (Alprazolam 0.25 Mg Tab) 0.25 mg PO Q6HR PRN PRN Reason: Anxiety Amiodarone HCl (Amiodarone 200 Mg Tab) 200 mg PO DAILY [facility] Last Admin: 05/12/24 09:13 Dose: 200 mg Aspirin (Aspirin 81 Mg) 81 mg PO DAILY [facility] Last Admin: 05/12/24 09:13 Dose: 81 mg Atorvastatin Calcium (Atorvastatin 40 Mg Tab) 40 mg PO HS [facility] Last Admin: 05/11/24 20:16 Dose: 40 mg Calcium Carbonate/Glycine (Calcium Carbonate 500 Mg Chewable) 1,000 mg PO Q4HR PRN PRN Reason: Dyspepsia Clopidogrel Bisulfate (Clopidogrel 75 Mg Tab) 75 mg PO DAILY [facility] Last Admin: 05/12/24 09:13 Dose: 75 mg Enoxaparin Sodium (Enoxaparin 40 Mg/0.4 Ml Syringe) 40 mg SQ DAILY [facility] Last Admin: 05/12/24 09:14 Dose: 40 mg Furosemide (Furosemide 20 Mg Tab) 20 mg PO DAILY [facility] Last Admin: 05/12/24 09:13 Dose: 20 mg Vancomycin HCl 1,250 mg/ (Sodium Chloride) 250 mls @ 125 mls/hr IVPB Q24HR [facility] Last Admin: 05/12/24 09:31 Dose: 125 mls/hr Cefepime HCl 2 gm/ Sodium (Chloride) 100 mls @ 25 mls/hr IVPB Q12HR [facility]; Protocol Lactulose (Lactulose 20 Gm/30 Ml Cup) 20 gm PO DAILY PRN PRN Reason: Constipation Melatonin (Melatonin 3 Mg Tablet) 3 mg PO HS PRN PRN Reason: Insomnia Metoprolol Tartrate (Metoprolol Tartrate 25 Mg Tab) 25 mg PO BID [facility] Last Admin: 05/12/24 09:13 Dose: 25 mg Naloxone HCl (Naloxone 0.4 Mg/Ml 1 Ml Vial) 0.2 mg IV Q2M PRN PRN Reason: Opioid Reversal Ondansetron HCl (Ondansetron 4 Mg/2 Ml Vial) 4 mg IVP Q8HR PRN PRN Reason: Nausea And Vomiting Potassium Chloride (Potassium Chloride Er 10 Meq Tab.Er.Prt) 10 meq PO DAILY [facility] Last Admin: 05/12/24 09:13 Dose: 10 meq Thyroid (Thyroid, Pork 30 Mg Tab) 90 mg PO DAILY [facility] Last Admin: 05/12/24 05:56 Dose: 90 mg Social history: Nonsmoker. Lives alone. Retired from working at [employer]. Alcohol occasionally. Physical examination: VITAL SIGNS: 98.1, 80, 18, 110 x 68, 98% room air GENERAL: Up in a recliner EYES: Pupils equal. Conjunctiva normal. HEENT: External appearance of nose and ears normal, oral cavity grossly normal. NECK: JVD not raised; masses not palpable. HEART: First and second heart sounds are normal; no edema. LUNGS: Respiratory rate normal; clear to auscultation. ABDOMEN: Soft, nontender, liver spleen not palpable, no masses palpable. PSYCH: Alert and oriented x3; mood and affect normal. MUSCULOSKELETAL: Dressing over the right leg INVESTIGATIONS, reviewed in the clinical context: Wound culture: [May 19] Pseudomonas aeruginosa and gram-negative bacilli May 12: White count 6.4 hemoglobin 9.6 platelets 220 potassium 3.8 creatinine 1.1 May 11: White count 7.8 hemoglobin 9 platelets 304 potassium 3.9 creatinine 0.93 Ultrasound right lower extremity: Complex fluid with solid component seen at medial knee level 4/cm x 3.9 x 1.7 cm.-Report is complex fluid collection. Assessment and plan: -Patient having some drainage from the right lower extremity where vein stripping was carried out following recent coronary bypass. Patient's hospital recently was treated with Keflex. Seen by vascular surgery Dr. Stanford. Now presents with some pus drainage. And a complex fluid collection I&D done by Dr. Stanford on May 12 Cultures growing Pseudomonas aeruginosa and gram-negative bacilli IV vancomycin, IV cefepime Follow-up Dr. Stanford and ID -Acute postprocedure blood loss anemia likely from recent coronary bypass -Bilateral lower extremity venous insufficiency right greater than left -CAD, prior stents Plavix. Lopressor. Aspirin. Crestor -CABG patient discharged from the hospital on April 22 Sternal incision wound healing well -Essential hypertension Lopressor 25 mg twice a day. -Hyperlipidemia Crestor -Hypothyroid [place] Thyroid -Full code Care was discussed with the patient and patient's son Jos care was discussed with the patient. Questions answered. Past Medical History Past Medical History: Coronary Artery Disease (CAD), Hypertension, Thyroid Disorder Additional Past Medical History / Comment(s): Osteoporosis, History of Any Multi-Drug Resistant Organisms: None Reported Past Surgical History: Coronary Bypass/CABG, Hysterectomy, Pacemaker Additional Past Surgical History / Comment(s): cataract, open heart Past Anesthesia/Blood Transfusion Reactions: No Reported Reaction Type of Cardiac Device: AICD Device Placement Date:: 2013 Past Psychological History: No Psychological Hx Reported Smoking Status: Never smoker Past Alcohol Use History: Occasional Past Drug Use History: None Reported
[2024-05-12] MEDS: CEFEPIME 2 GM in SODIUM CHLORIDE 0.9% 100 ML IVPB SCH (20:27)
[2024-05-13] MEDS: THYROID, PORK 30 MG TAB PO SCH (06:15)
[2024-05-13 06:33] LABS: African American GFR (CKD) 70 (>60 ml/min/1.73 sqM); Non-African American GFR(CKD) 61 (>60 ml/min/1.73 sqM)
--- NOTE | 2024-05-13 08:41 | P.PN ---
Progress Note - Text 74-year-old white female patient had a CABG done at [facility] patient had exploration of the great saphenous vein right lower extremity patient developed wound infection we did the debridement and culture came back assess Pseudomonas and gram-negative bacilli patient on IV antibiotic under care of infectious disease today will change the dressing of the right lower extremity minimal drainage noted will use Aquacel rope patient dressing was changed on Wednesday
--- NOTE | 2024-05-13 15:37 | P.PN ---
Progress Note - Text Progress Note Date: 05/13/24 Chief Complaint: Infection at vein removal site This is a pleasant 74-year-old patient follows with Dr. Navarrete. Patient follows at [facility]. 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 Gale, cardiothoracic surgeon, -EP. Patient's hospital from May 02 through May 03. recently underwent a coronary bypass and [facility]. Discharged from there on April 22. They did try patient's right leg veins but ended ultimately up to use internal mammary artery. Presented with some swelling of both lower extremity right greater than left. It is the right leg that try to take the veins from. Patient had noticed that around the right big toe and pr oximal LAD had become rather painful tender and swollen. Patient had no fever and chills and decided to come in. No prior history of gout. Denies any fever and chills. Tired. Appetite had decreased a bit. No change in bowel pattern. Received IV ceftriaxone and vancomycin in the ER. Pain swelling redness much better next morning. Patient seen by Dr. Arciniega from vascular. Patient was discharged on Keflex for 5 days. Patient 2 days ago noticed some drainage from the right leg below the knee at the vein stripping site some pus extraction. No fever no chills. Appetite fair. Admitted for the same. May 12: Up in a recliner. Tolerating diet. No fever no chills. Dressing over the right leg. On IV cefepime and vancomycin. Cultures growing Pseudomonas aeruginosa and gram-negative bacilli. May 13: Up in recliner. Wound dressing changed by Dr. Stanford. Reported to be better. VAC change. Remains on antibiotics. Cultures noted. Oral intake good. No diarrhea. Active Medications Acetaminophen (Acetaminophen Tab 325 Mg Tab) 650 mg PO Q6HR PRN PRN Reason: Mild Pain or Fever > 100.5 Alprazolam (Alprazolam 0.25 Mg Tab) 0.25 mg PO Q6HR PRN PRN Reason: Anxiety Amiodarone HCl (Amiodarone 200 Mg Tab) 200 mg PO DAILY [facility] Last Admin: 05/13/24 08:39 Dose: 200 mg Aspirin (Aspirin 81 Mg) 81 mg PO DAILY [facility] Last Admin: 05/13/24 08:39 Dose: 81 mg Atorvastatin Calcium (Atorvastatin 40 Mg Tab) 40 mg PO HS [facility] Last Admin: 05/12/24 20:28 Dose: 40 mg Calcium Carbonate/Glycine (Calcium Carbonate 500 Mg Chewable) 1,000 mg PO Q4HR PRN PRN Reason: Dyspepsia Clopidogrel Bisulfate (Clopidogrel 75 Mg Tab) 75 mg PO DAILY [facility] Last Admin: 05/13/24 08:39 Dose: 75 mg Enoxaparin Sodium (Enoxaparin 40 Mg/0.4 Ml Syringe) 40 mg SQ DAILY [facility] Last Admin: 05/13/24 08:39 Dose: 40 mg Furosemide (Furosemide 20 Mg Tab) 20 mg PO DAILY [facility] Last Admin: 05/13/24 08:39 Dose: 20 mg Vancomycin HCl 1,250 mg/ (Sodium Chloride) 250 mls @ 125 mls/hr IVPB Q24HR [facility] Last Admin: 05/13/24 08:40 Dose: 125 mls/hr Cefepime HCl 2 gm/ Sodium (Chloride) 100 mls @ 25 mls/hr IVPB Q12HR [facility]; Protocol Last Admin: 05/13/24 08:40 Dose: 25 mls/hr Lactulose (Lactulose 20 Gm/30 Ml Cup) 20 gm PO DAILY PRN PRN Reason: Constipation Melatonin (Melatonin 3 Mg Tablet) 3 mg PO HS PRN PRN Reason: Insomnia Metoprolol Tartrate (Metoprolol Tartrate 25 Mg Tab) 25 mg PO BID [facility] Last Admin: 05/13/24 08:39 Dose: 25 mg Miscellaneous Information (Vancomycin Trough Due 1 Each Misc) 0 each MISCELLANE DIRECTED ONE Stop: 05/14/24 08:01 Naloxone HCl (Naloxone 0.4 Mg/Ml 1 Ml Vial) 0.2 mg IV Q2M PRN PRN Reason: Opioid Reversal Ondansetron HCl (Ondansetron 4 Mg/2 Ml Vial) 4 mg IVP Q8HR PRN PRN Reason: Nausea And Vomiting Potassium Chloride (Potassium Chloride Er 10 Meq Tab.Er.Prt) 10 meq PO DAILY [facility] Last Admin: 05/13/24 08:39 Dose: 10 meq Thyroid (Thyroid, Pork 30 Mg Tab) 90 mg PO DAILY@0630 [facility] Last Admin: 05/13/24 06:15 Dose: 90 mg Social history: Nonsmoker. Lives alone. Retired from working at [employer] [facility]. Alcohol occasionally. Physical examination: VITAL SIGNS: 97.8, 79, 20, 109/64, 96% room air GENERAL: Up in a recliner EYES: Pupils equal. Conjunctiva normal. HEENT: External appearance of nose and ears normal, oral cavity grossly normal. NECK: JVD not raised; masses not palpable. HEART: First and second heart sounds are normal; no edema. LUNGS: Respiratory rate normal; clear to auscultation. ABDOMEN: Soft, nontender, liver spleen not palpable, no masses palpable. PSYCH: Alert and oriented x3; mood and affect normal. MUSCULOSKELETAL: Dressing over the right leg INVESTIGATIONS, reviewed in the clinical context: Wound culture: [May 19] Pseudomonas aeruginosa and gram-negative bacilli, Proteus mirabilis May 12: White count 6.4 hemoglobin 9.6 platelets 220 potassium 3.8 creatinine 1.1 May 11: White count 7.8 hemoglobin 9 platelets 304 potassium 3.9 creatinine 0.93 Ultrasound right lower extremity: Complex fluid with solid component seen at medial knee level 4/cm x 3.9 x 1.7 cm.-Report is complex fluid collection. Assessment and plan: -Patient having some drainage from the right lower extremity where vein stripping was carried out following recent coronary bypass. Patient's hospital recently was treated with Keflex. Seen by vascular surgery Dr. Stanford. Now presents with some pus drainage. And a complex fluid collection I&D done by Dr. Stanford on May 12 Cultures growing Pseudomonas aeruginosa, Proteus mirabilis and gram-negative bacilli IV vancomycin, IV cefepime Follow-up Dr. Stanford and ID -Acute postprocedure blood loss anemia likely from recent coronary bypass -Bilateral lower extremity venous insufficiency right greater than left -CAD, prior stents Plavix. Lopressor. Aspirin. Crestor -CABG patient discharged from the hospital on April 22 Sternal incision wound healing well -Essential hypertension Lopressor 25 mg twice a day. -Hyperlipidemia Crestor -Hypothyroid [place] Thyroid -Full code Discussed. Continue current medications. Follow with ID Past Medical History Past Medical History: Coronary Artery Disease (CAD), Hypertension, Thyroid Disorder Additional Past Medical History / Comment(s): Osteoporosis, History of Any Multi-Drug Resistant Organisms: None Reported Past Surgical History: Coronary Bypass/CABG, Hysterectomy, Pacemaker Additional Past Surgical History / Comment(s): cataract, open heart Past Anesthesia/Blood Transfusion Reactions: No Reported Reaction Type of Cardiac Device: AICD Device Placement Date:: 2013 Past Psychological History: No Psychological Hx Reported Smoking Status: Never smoker Past Alcohol Use History: Occasional Past Drug Use History: None Reported
--- NOTE | 2024-05-13 15:59 | P.PN ---
Subjective Progress Note Date: 05/13/24 Principal diagnosis: Reason for follow-up is right lower extremity wound and cellulitis Patient is a 74-year-old -Swazi female with a past medical history significant for hypertension hypothyroidism coronary artery disease in this patient who is status post recent coronary bypass grafting at [facility] patient mention did try to take a vein from the right lower extremity however considered to be not suitable as the incision was sealed off subsequently patient noticing having increasing swelling and redness and has been diagnosed with cellulitis failing outpatient oral antibiotic therapy patient is status post bedside debridement of the right lower extremity by vascular surgery. On today's evaluation that is 05/13/2024,the patient remains to be afebrile, patient is on room air not requiring supplemental oxygen and denies any shortness of breath no chest pain or cough.Patient denies having any nausea or vomiting, no abdominal pain and no diarrhea has been reported, patient mentioned slight decrease in pain to the right lower extremity feeling slightly better. Patient did have a creatinine 0.92 no CBC was done today local culture growing Pseudomonas Proteus and gram-negative bacilli along with bacteroids Objective - Vital Signs Vital signs: Vital Signs Temp 97.6 F 05/13/24 07:16 Pulse 80 05/13/24 07:16 Resp 20 05/13/24 07:16 BP 135/77 05/13/24 07:16 Pulse Ox 97 05/13/24 07:16 FiO2 Intake & Output 05/12/24 05/13/24 05/13/24 18:59 06:59 18:59 Other: Voiding Method Toilet Toilet # Voids 2 1 - Exam GENERAL DESCRIPTION: An elderly female lying in bed in no distress RESPIRATORY SYSTEM: Unlabored breathing , decreased breath sounds at bases HEART: S1 S2 regular rate and rhythm , ABDOMEN: Soft , no tenderness EXTREMITIES: Right leg wound is currently dressed - Labs CBC & Chem 7: 05/12/24 05:51 05/13/24 05:52 Labs: Microbiology - Last 24 Hours (Table) 05/11/24 08:40 Gram Stain - Preliminary Leg - Right Wound Culture - Preliminary Pseudomonas aeruginosa Proteus mirabilis Gram Neg Bacilli 05/11/24 16:00 Gram Stain - Preliminary Incision Tissue Culture - Preliminary 05/11/24 09:38 Blood Culture - Preliminary Blood 05/11/24 08:40 Blood Culture - Preliminary Blood Assessment and Plan (1) Cellulitis of right lower extremity Current Visit: Yes Status: Acute Code(s): L03.115 - CELLULITIS OF RIGHT LOWER LIMB SNOMED Code(s): 41223996210270292 (2) Leg wound, right Current Visit: Yes Status: Acute Code(s): S81.801A - UNSPECIFIED OPEN WOUND, RIGHT LOWER LEG, INITIAL ENCOUNTER SNOMED Code(s): 20348206210964449 Plan: 1patient presented hospital with a right lower extremity pain swelling and tenderness in this patient who recently did have surgery to the right lower extremity for possible successful grafting which was not done ultrasound suspicious for a complex fluid collection possible abscess versus seroma failing outpatient treatment. 2patient is status post vascular surgery evaluation and I&D and deep culture which are currently growing Proteus Pseudomonas gram-negative and bacteroids 3patient to continue with cefepime at [facility] to cover for the bacteria-discon tinue vancomycin as no gram-positive has been grown in the culture Dictation was produced using [employer] dictation software. please excuse any grammatical, word or spelling errors. Time with Patient: Less than 30
--- NOTE | 2024-05-13 15:59 | P.PN ---
Subjective Progress Note Date: 05/12/24 Principal diagnosis: Reason for follow-up is right lower extremity wound and cellulitis Patient is a 74-year-old -Alban[place] female with a past medical history significant for hypertension hypothyroidism coronary artery disease in this patient who is status post recent coronary bypass grafting at [facility] patient mention did try to take a vein from the right lower extremity however considered to be not suitable as the incision was sealed off subsequently patient noticing having increasing swelling and redness and has been diagnosed with cellulitis failing outpatient oral antibiotic therapy patient is status post bedside debridement of the right lower extremity by vascular surgery. On today's evaluation that is 05/12/2024,the patient denies any fever or any chills, patient is breathing comfortably on room air, the patient denies chest pain shortness of breath and no significant cough, patient denies abdominal pain, no nausea vomiting or diarrhea. Patient pain to the right lower extremity has slightly decreased in intensity. Patient white count 6.47, creatinine is 1.1 Objective - Vital Signs Vital signs: Vital Signs Temp 98.1 F 05/12/24 13:00 Pulse 80 05/12/24 13:00 Resp 18 05/12/24 13:00 BP 110/68 05/12/24 13:00 Pulse Ox 98 05/12/24 13:00 FiO2 Intake & Output 05/11/24 05/12/24 05/12/24 18:59 06:59 18:59 Intake Total 250 590 Balance 250 590 Weight 64.41 kg Intake: Intake, IV Titration 250 Amount Vancomycin 1,250 mg In 250 Sodium Chloride 0.9% 250 ml @ 125 mls/hr IVPB Q24HR [facility] Rx#:[id number] Oral 590 Other: Voiding Method Toilet Toilet Toilet # Voids 2 2 - Exam GENERAL DESCRIPTION: An elderly female lying in bed in no distress RESPIRATORY SYSTEM: Unlabored breathing , decreased breath sounds at bases HEART: S1 S2 regular rate and rhythm , ABDOMEN: Soft , no tenderness EXTREMITIES: Right leg wound is currently dressed - Labs CBC & Chem 7: 05/12/24 05:51 05/13/24 05:52 Labs: Abnormal Lab Results - Last 24 Hours (Table) 05/12/24 05/12/24 Range/Units 05:51 05:51 RBC 3.38 L (4.10-5.20) X 10*6/uL Hgb 9.6 L (12.0-15.0) g/dL Hct 30.9 L (37.2-46.3) % MCHC 31.1 L (32.0-37.0) g/dL RDW 15.0 H (11.5-14.5) % MPV 9.1 L (9.5-12.2) FL Eosinophils # 0.78 H (0.04-0.35) X 10*3/uL Anion Gap 12.20 H (4.00-12.00) mmol/L Est GFR (CKD-EPI) 52 L (>=60) Calcium 8.3 L (8.7-10.3) mg/dL AST 39 H (13-35) U/L Total Protein 6.0 L (6.2-8.2) g/dL Albumin 3.4 L (3.8-4.9) g/dL Albumin/Globulin Ratio 1.31 L (1.60-3.17) Ratio Microbiology - Last 24 Hours (Table) 05/11/24 08:40 Gram Stain - Preliminary Leg - Right Wound Culture - Preliminary Pseudomonas aeruginosa Gram Neg Bacilli 05/11/24 16:00 Gram Stain - Preliminary Incision Assessment and Plan (1) Cellulitis of right lower extremity Current Visit: Yes Status: Acute Code(s): L03.115 - CELLULITIS OF RIGHT LOWER LIMB SNOMED Code(s): 69972610822878672 (2) Leg wound, right Current Visit: Yes Status: Acute Code(s): S81.801A - UNSPECIFIED OPEN WOUND, RIGHT LOWER LEG, INITIAL ENCOUNTER SNOMED Code(s): 83936083410669775 Plan: 1patient presented hospital with a right lower extremity pain swelling and tenderness in this patient who recently did have surgery to the right lower extremity for possible successful grafting which was not done ultrasound suspicious for a complex fluid collection possible abscess versus seroma failing outpatient treatment. 2patient is status post vascular surgery evaluation and I&D and deep culture which are currently pending. 3patient to continue with vancomycin and cefepime while waiting for the culture to finalize Dictation was produced using [employer] dictation software. please excuse any grammatical, word or spelling errors. Time with Patient: Less than 30
[2024-05-13] MEDS: metroNIDAZOLE 500 MG TAB PO SCH (18:08)
[2024-05-14] MEDS ORDERED: VANCOMYCIN TROUGH DUE 1 EACH MISC MISCELLANE ONE (08:00)
[2024-05-14 09:33] LABS: African American GFR (CKD) 73 (>60 ml/min/1.73 sqM); Non-African American GFR(CKD) 63 (>60 ml/min/1.73 sqM)
--- NOTE | 2024-05-14 18:33 | P.PN ---
Progress Note - Text Progress Note Date: 05/14/24 Chief Complaint: Infection at vein removal site This is a pleasant 74-year-old patient follows with Dr. Navarrete. Patient follows at [facility]. Dr. Lujan-film or videotape editor, Dr. Gale, cardiothoracic surgeon, -EP. Patient's hospital from May 02 through May 03. recently underwent a coronary bypass and [facility]. Discharged from there on April 22. They did try patient's right leg veins but ended ultimately up to use internal mammary artery. Presented with some swelling of both lower extremity right greater than left. It is the right leg that try to take the veins from. Patient had noticed that around the right big toe and pr oximal LAD had become rather painful tender and swollen. Patient had no fever and chills and decided to come in. No prior history of gout. Denies any fever and chills. Tired. Appetite had decreased a bit. No change in bowel pattern. Received IV ceftriaxone and vancomycin in the ER. Pain swelling redness much better next morning. Patient seen by Dr. Arciniega from vascular. Patient was discharged on Keflex for 5 days. Patient 2 days ago noticed some drainage from the right leg below the knee at the vein stripping site some pus extraction. No fever no chills. Appetite fair. Admitted for the same. May 12: Up in a recliner. Tolerating diet. No fever no chills. Dressing over the right leg. On IV cefepime and vancomycin. Cultures growing Pseudomonas aeruginosa and gram-negative bacilli. May 13: Up in recliner. Wound dressing changed by Dr. Stanford. Reported to be better. VAC change. Remains on antibiotics. Cultures noted. Oral intake good. No diarrhea. May 14: Patient doing well. No new issues. Per ID patient on cefepime and Flagyl. Vancomycin discontinued. Active Medications Acetaminophen (Acetaminophen Tab 325 Mg Tab) 650 mg PO Q6HR PRN PRN Reason: Mild Pain or Fever > 100.5 Alprazolam (Alprazolam 0.25 Mg Tab) 0.25 mg PO Q6HR PRN PRN Reason: Anxiety Amiodarone HCl (Amiodarone 200 Mg Tab) 200 mg PO DAILY [facility] Last Admin: 05/14/24 08:19 Dose: 200 mg Aspirin (Aspirin 81 Mg) 81 mg PO DAILY [facility] Last Admin: 05/14/24 08:19 Dose: 81 mg Atorvastatin Calcium (Atorvastatin 40 Mg Tab) 40 mg PO HS [facility] Last Admin: 05/13/24 20:42 Dose: 40 mg Calcium Carbonate/Glycine (Calcium Carbonate 500 Mg Chewable) 1,000 mg PO Q4HR PRN PRN Reason: Dyspepsia Clopidogrel Bisulfate (Clopidogrel 75 Mg Tab) 75 mg PO DAILY [facility] Last Admin: 05/14/24 08:19 Dose: 75 mg Enoxaparin Sodium (Enoxaparin 40 Mg/0.4 Ml Syringe) 40 mg SQ DAILY [facility] Last Admin: 05/14/24 08:19 Dose: 40 mg Furosemide (Furosemide 20 Mg Tab) 20 mg PO DAILY [facility] Last Admin: 05/14/24 08:19 Dose: 20 mg Cefepime HCl 2 gm/ Sodium (Chloride) 100 mls @ 25 mls/hr IVPB Q12HR [facility]; Protocol Last Admin: 05/14/24 08:19 Dose: 25 mls/hr Lactulose (Lactulose 20 Gm/30 Ml Cup) 20 gm PO DAILY PRN PRN Reason: Constipation Melatonin (Melatonin 3 Mg Tablet) 3 mg PO HS PRN PRN Reason: Insomnia Metoprolol Tartrate (Metoprolol Tartrate 25 Mg Tab) 25 mg PO BID [facility] Last Admin: 05/14/24 08:19 Dose: 25 mg Metronidazole (Metronidazole 500 Mg Tab) 500 mg PO TID [facility]; Protocol Last Admin: 05/14/24 16:25 Dose: 500 mg Naloxone HCl (Naloxone 0.4 Mg/Ml 1 Ml Vial) 0.2 mg IV Q2M PRN PRN Reason: Opioid Reversal Ondansetron HCl (Ondansetron 4 Mg/2 Ml Vial) 4 mg IVP Q8HR PRN PRN Reason: Nausea And Vomiting Potassium Chloride (Potassium Chloride Er 10 Meq Tab.Er.Prt) 10 meq PO DAILY [facility] Last Admin: 05/14/24 08:19 Dose: 10 meq Thyroid (Thyroid, Pork 30 Mg Tab) 90 mg PO DAILY@0630 [facility] Last Admin: 05/14/24 05:49 Dose: 90 mg Social history: Nonsmoker. Lives alone. Retired from working at [employer]. Alcohol occasionally. Physical examination: VITAL SIGNS: 97.7 78, 18, 110 x 76, 95% room air GENERAL: Up in a recliner EYES: Pupils equal. Conjunctiva normal. HEENT: External appearance of nose and ears normal, oral cavity grossly normal. NECK: JVD not raised; masses not palpable. HEART: First and second heart sounds are normal; no edema. LUNGS: Respiratory rate normal; clear to auscultation. ABDOMEN: Soft, nontender, liver spleen not palpable, no masses palpable. PSYCH: Alert and oriented x3; mood and affect normal. MUSCULOSKELETAL: Dressing over the right leg INVESTIGATIONS, reviewed in the clinical context: Wound culture: [May 19] Pseudomonas aeruginosa and gram-negative bacilli, Proteus mirabilis May 12: White count 6.4 hemoglobin 9.6 platelets 220 potassium 3.8 creatinine 1.1 May 11: White count 7.8 hemoglobin 9 platelets 304 potassium 3.9 creatinine 0.93 Ultrasound right lower extremity: Complex fluid with solid component seen at medial knee level 4/cm x 3.9 x 1.7 cm.-Report is complex fluid collection. Assessment and plan: -Patient having some drainage from the right lower extremity where vein stripping was carried out following recent coronary bypass. Patient's hospital recently was treated with Keflex. Seen by vascular surgery Dr. Stanford. Now presents with some pus drainage. And a complex fluid collection I&D done by Dr. Stanford on May 12 Cultures growing Pseudomonas aeruginosa, Proteus mirabilis and gram-negative bacilli IV vancomycin-discontinued, IV cefepime Flagyl Follow-up Dr. Stanford and ID -Acute postprocedure blood loss anemia likely from recent coronary bypass -Bilateral lower extremity venous insufficiency right greater than left -CAD, prior stents Plavix. Lopressor. Aspirin. Crestor -CABG patient discharged from the hospital on April 22 Sternal incision wound healing well -Essential hypertension Lopressor 25 mg twice a day. -Hyperlipidemia Crestor -Hypothyroid [place] Thyroid -Full code Antibiotics adjusted per ID. Discussed with patient. Past Medical History Past Medical History: Coronary Artery Disease (CAD), Hypertension, Thyroid Disorder Additional Past Medical History / Comment(s): Osteoporosis, History of Any Multi-Drug Resistant Organisms: None Reported Past Surgical History: Coronary Bypass/CABG, Hysterectomy, Pacemaker Additional Past Surgical History / Comment(s): cataract, open heart Past Anesthesia/Blood Transfusion Reactions: No Reported Reaction Type of Cardiac Device: AICD Device Placement Date:: 2013 Past Psychological History: No Psychological Hx Reported Smoking Status: Never smoker Past Alcohol Use History: Occasional Past Drug Use History: None Reported
[2024-05-14] MEDS: ACETAMINOPHEN TAB 325 MG TAB PO PRN (20:49)
[2024-05-14 21:12] VITALS: RESP 16
[2024-05-15 08:18] LABS: African American GFR (CKD) 75 (>60 ml/min/1.73 sqM); Non-African American GFR(CKD) 65 (>60 ml/min/1.73 sqM)
[2024-05-15 14:44] VITALS: BP 112/69; PULSE 76; TEMP 98.6
--- NOTE | 2024-05-15 16:00 | CDI ---
Documentation Clarification Form Date: 05/15/2024 02:52:00 PM From: Elodia Drummond Phone: [phone] Admit Date: 05/11/2024 10:33:00 AM Patient Name: Breann Meyers Visit Number: [id number] Discharge Date: ATTENTION: The Clinical Documentation Specialists (CDI) and [facility] Coding Staff appreciate your assistance in clarifying documentation. Please respond to the clarification below the line at the bottom and electronically sign. The CDI & [facility] Coding staff will review the response and follow-up if needed. Please note: Queries are made part of the Legal Health Record. If you have any questions, please contact the author of this message via ITS. Dr. Pascual Deutsch debridement is documented Preop diagnosis infected wound post great saphenous vein exploration for bypass. Additional clarification regarding the procedure is requested some mild drainage with some devitalized tissue present. History/Risk Factors: Coronary Artery Disease, Hypertension, Thyroid Disorder Clinical Indicators: 74-year-old recently underwent a coronary bypass. last month and they did an investigation of the right lower extremity for possible saphenous vein grafting. 05/11 Procedure note: incision right lower extremity at length of the incision is abo for 1/2 cm in length and 1.2 cm in depth debridement was performed down to subcu tissue and the fat there was some devitalized tissue which was removed there was fluid drainage noted no active pus was noted tissue was sent for deep culture wound was irrigated with saline and extra silver rope was placed dressing applied. Treatment Cefepime HCL 2 GM IVPB Q 12 HR Lasix 20 MG PO Daily Vancomycin HCL 1,2500 MG IVPB Q 24 HR Dressing change per orders Please clarify the type of procedure performed: [ X ] Excisional debridement (the removal of necrotic, devitalized tissue or slough by means of cutting away of tissue) [ ] Non-excisional debridement (the removal of necrotic, devitalized tissue or slough by means of flushing, brushing, or washing. (Irrigation) [ ] Other; please specify [ ] Unable to determine Five elements required for accurate and compliant documentation of a debridement: Technique used (e.g., excisional, excised, cutting, brushing, jet lavage etc.) Instrument(s) used (e.g., scalpel, curette, etc.) Nature of the tissue removed (e.g., necrotic, devitalized tissues, non-viable tissue, etc.) Appearance and size of the wound (e.g., down to fresh bleeding tissue, 7cm x 10cm, etc.) Depth of the debridement* (e.g., skin, subcutaneous tissue, fascia, muscle, bone, etc.) (Template Last Revised: January 2021) MTDD
--- NOTE | 2024-05-15 16:27 | P.PN ---
Progress Note - Text 74-year-old female patient had a CABG done at [facility] at that time they explore the right leg great saphenous vein which was not usable patient came with swelling of the right lower extremity and and we did their wound debridement of the right lower extremity patient is under care of infectious disease for IV antibiotic today we have changed her dressing base of the wound is granulating less discharge noted we use extra silver rope and patient under care of infectious disease for IV antibiotic if patient goes home will follow-up in the office on
--- NOTE | 2024-05-15 18:31 | P.PN ---
Subjective Progress Note Date: 05/14/24 Principal diagnosis: Reason for follow-up is right lower extremity wound and cellulitis Patient is a 74-year-old -[place] female with a past medical history significant for hypertension hypothyroidism coronary artery disease in this patient who is status post recent coronary bypass grafting at [facility] patient mention did try to take a vein from the right lower extremity however considered to be not suitable as the incision was sealed off subsequently patient noticing having increasing swelling and redness and has been diagnosed with cellulitis failing outpatient oral antibiotic therapy patient is status post bedside debridement of the right lower extremity by vascular surgery. On today's evaluation that is 05/14/2024, the patient continues to be afebrile, the patient is on room air and breathing comfortably, the Pt denies having any chest pain or cough, the patient denies having any abdominal pain no vomiting or any diarrhea denies any worsening pain to the right lower extremity. Patient did have a creatinine 0.89 no CBC was done today Objective - Vital Signs Vital signs: Vital Signs Temp 97.8 F 05/14/24 07:33 Pulse 75 05/14/24 07:33 Resp 20 05/14/24 07:33 BP 126/77 05/14/24 07:33 Pulse Ox 97 05/14/24 07:33 FiO2 Intake & Output 05/13/24 05/14/24 05/14/24 18:59 06:59 18:59 Other: Voiding Method Toilet Toilet # Voids 4 3 1 # Bowel Movements 2 - Exam GENERAL DESCRIPTION: An elderly female lying in bed in no distress RESPIRATORY SYSTEM: Unlabored breathing , decreased breath sounds at bases HEART: S1 S2 regular rate and rhythm , ABDOMEN: Soft , no tenderness EXTREMITIES: Right leg wound is currently dressed - Labs CBC & Chem 7: 05/12/24 05:51 05/15/24 06:51 Labs: Microbiology - Last 24 Hours (Table) 05/11/24 08:40 Gram Stain - Final Leg - Right Wound Culture - Final Escherichia coli Pseudomonas aeruginosa Proteus mirabilis 05/11/24 16:00 Gram Stain - Preliminary Incision Tissue Culture - Preliminary Gram Neg Bacilli 05/11/24 09:38 Blood Culture - Preliminary Blood 05/11/24 08:40 Blood Culture - Preliminary Blood 05/11/24 08:40 Anaerobic Culture - Preliminary Leg - Right Bacteroides fragilis Assessment and Plan (1) Cellulitis of right lower extremity Current Visit: Yes Status: Acute Code(s): L03.115 - CELLULITIS OF RIGHT LOWE R LIMB SNOMED Code(s): 01921446652010723 (2) Leg wound, right Current Visit: Yes Status: Acute Code(s): S81.801A - UNSPECIFIED OPEN WOUND, RIGHT LOWER LEG, INITIAL ENCOUNTER SNOMED Code(s): 68338799131001412 Plan: 1patient presented hospital with a right lower extremity pain swelling and tenderness in this patient who recently did have surgery to the right lower extremity for possible successful grafting which was not done ultrasound suspicious for a complex fluid collection possible abscess versus seroma failing outpatient treatment. 2patient is status post vascular surgery evaluation and I&D and deep culture which are currently growing Proteus Pseudomonas gram-negative and bacteroids 3patient to continue with cefepime at Flagyl to cover for the bacteroids may need IV antibiotics on discharge Dictation was produced using [employer] dictation software. please excuse any grammatical, word or spelling errors. Time with Patient: Less than 30
--- NOTE | 2024-05-15 18:32 | P.PN ---
Subjective Progress Note Date: 05/15/24 Principal diagnosis: Reason for follow-up is right lower extremity wound and cellulitis Patient is a 74-year-old -[place] female with a past medical history significant for hypertension hypothyroidism coronary artery disease in this patient who is status post recent coronary bypass grafting at [facility] patient mention did try to take a vein from the right lower extremity however considered to be not suitable as the incision was sealed off subsequently patient noticing having increasing swelling and redness and has been diagnosed with cellulitis failing outpatient oral antibiotic therapy patient is status post bedside debridement of the right lower extremity by vascular surgery. On today's evaluation that is 05/15/2024, Patient is afebrile patient is currently on room air and denies having any shortness of breath, the patient denies any chest pain or cough, the patient denies any nausea vomiting did not have any abdominal pain and no diarrhea, but denies any worsening pain to the right lower extremity wound. Patient did have a creatinine of 0.87 Objective - Vital Signs Vital signs: Vital Signs Temp 97.8 F 05/15/24 07:52 Pulse 80 05/15/24 07:52 Resp 16 05/15/24 07:52 BP 138/77 05/15/24 07:52 Pulse Ox 95 05/15/24 07:52 FiO2 Intake & Output 05/14/24 05/15/24 05/15/24 18:59 06:59 18:59 Intake Total 120 Balance 120 Intake: Oral 120 Other: Voiding Method Toilet Toilet # Voids 3 3 - Exam GENERAL DESCRIPTION: An elderly female lying in bed in no distress RESPIRATORY SYSTEM: Unlabored breathing , decreased breath sounds at bases HEART: S1 S2 regular rate and rhythm , ABDOMEN: Soft , no tenderness EXTREMITIES: Right leg wound with no slough tissue surrounding redness improved no drainage - Labs CBC & Chem 7: 05/12/24 05:51 05/15/24 06:51 Labs: Microbiology - Last 24 Hours (Table) 05/11/24 08:40 Anaerobic Culture - Final Leg - Right Bacteroides fragilis 05/11/24 16:00 Anaerobic Culture - Preliminary Incision 05/11/24 09:38 Blood Culture - Preliminary Blood 05/11/24 08:40 Blood Culture - Preliminary Blood Assessment and Plan (1) Cellulitis of right lower extremity Current Visit: Yes Status: Acute Code(s): L03.115 - CELLULITIS OF RIGHT LOWER LIMB SNOMED Code(s): 14285978035610696 (2) Leg wound, right Current Visit: Yes Status: Acute Code(s): S81.801A - UNSPECIFIED OPEN WOUND, RIGHT LOWER LEG, INITIAL ENCOUNTER SNOMED Code(s): 57420898918178319 Plan: 1patient presented hospital with a right lower extremity pain swelling and tenderness in this patient who recently did have surgery to the right lower extremity for possible successful grafting which was not done ultrasound suspicious for a complex fluid collection possible abscess versus seroma failing outpatient treatment. 2patient is status post vascular surgery evaluation and I&D and deep culture which are currently growing Proteus Pseudomonas gram-negative and bacteroids 3patient is on amiodarone and cannot use oral Cipro we will place a midline and plan is for a 2-day course of oral Flagyl and IV cefepime and close outpatient follow-up prescription provided to the case reviewer Dictation was produced using [employer] dictation software. please excuse any grammatical, word or spelling errors. Time with Patient: Less than 30
--- NOTE | 2024-05-16 21:15 | P.DS ---
Providers Date of admission: 05/11/24 10:33 Expected date of discharge: 05/15/24 Attending physician: Marshall Cheng Consults: 05/11/24 10:33 Consult Physician Routine Consulting Provider: Pascual Stanford Consult Reason/Comments: RLE wound infection, possible abscess Do you want consulting provider notified?: Yes Consult Physician Routine Consulting Provider: Josh Garcia Consult Reason/Comments: RLE wound cellulitis Do you want consulting provider notified?: Yes Primary care physician: [facility] Course: Chief Complaint: Infection at vein removal site This is a pleasant 74-year-old patient follows with Dr. Navarrete. Patient follows at [facility]. Dr. Lujan-roller skate assembler, Dr. Gale, cardiothoracic surgeon, -EP. Patient's hospital from May 02 through May 03. recently underwent a coronary bypass and [facility]. Discharged from there on April 22. They did try patient's right leg veins but ended ultimately up to use internal mammary artery. Presented with some swelling of both lower extremity right greater than left. It is the right leg that try to take the veins from. Patient had noticed that around the right big toe and proximal LAD had become rather painful tender and swollen. Patient had no fever and chills and decided to come in. No prior history of gout. Denies any fever and chills. Tired. Appetite had decreased a bit. No change in bowel pattern. Received IV ceftriaxone and vancomycin in the ER. Pain swelling redness much better next morning. Patient seen by Dr. Arciniega from vascular. Patient was discharged on Keflex for 5 days. Patient 2 days ago noticed some drainage from the right leg below the knee at the vein stripping site some pus extraction. No fever no chills. Appetite fair. Admitted for the same. May 12: Up in a recliner. Tolerating diet. No fever no chills. Dressing over the right leg. On IV cefepime and vancomycin. Cultures growing Pseudomonas aeruginosa and gram-negative bacilli. May 13: Up in recliner. Wound dressing changed by Dr. Stanford. Reported to be better. VAC change. Remains on antibiotics. Cultures noted. Oral intake good. No diarrhea. May 14: Patient doing well. No new issues. Per ID patient on cefepime and Flagyl. Vancomycin discontinued. May 15: Patient doing well. Eating well. No diarrhea. Pain controlled.. Discussed about using Bhavik wrap after discussing with Dr. Stanford. Spoke to ID. Midline ordered in place. Did a course of Flagyl and IV cefepime. She will follow-up with Dr. Stanford and Dr. Mae outpatient. Questions answered. Discussion and discharge planning more than 35 minutes Social history: Nonsmoker. Lives alone. Retired from working at [employer]. Alcohol occasionally. Physical examination: VITAL SIGNS: 98.6, 76, 16, 112/69, 98% room air GENERAL: Up in a recliner EYES: Pupils equal. Conjunctiva normal. HEENT: External appearance of nose and ears normal, oral cavity grossly normal. NECK: JVD not raised; masses not palpable. HEART: First and second heart sounds are normal; no edema. LUNGS: Respiratory rate normal; clear to auscultation. ABDOMEN: Soft, nontender, liver spleen not palpable, no masses palpable. PSYCH: Alert and oriented x3; mood and affect normal. MUSCULOSKELETAL: Dressing over the right leg INVESTIGATIONS, reviewed in the clinical context: Wound culture: [May 19] Pseudomonas aeruginosa and gram-negative bacilli, Proteus mirabilis May 12: White count 6.4 hemoglobin 9.6 platelets 220 potassium 3.8 creatinine 1.1 May 11: White count 7.8 hemoglobin 9 platelets 304 potassium 3.9 creatinine 0.93 Ultrasound right lower extremity: Complex fluid with solid component seen at medial knee level 4/cm x 3.9 x 1.7 cm.-Report is complex fluid collection. Assessment and plan: -Patient having some drainage from the right lower extremity where vein stripping was carried out following recent coronary bypass. Patient's hospital recently was treated with Keflex. Seen by vascular surgery Dr. Stanford. Now presents with some pus drainage. And a complex fluid collection I&D done by Dr. Stanford on May 12 Cultures growing Pseudomonas aeruginosa, Proteus mirabilis and gram-negative bacilli IV vancomycin-discontinued, IV cefepime Flagyl Follow-up Dr. Stanford and ID Patient being discharged on IV cefepime and Flagyl -Acute postprocedure blood loss anemia likely from recent coronary bypass -Bilateral lower extremity venous insufficiency right greater than left -CAD, prior stents Plavix. Lopressor. Aspirin. Crestor -CABG patient discharged from the hospital on April 22 Sternal incision wound healing well -Essential hypertension Lopressor 25 mg twice a day. -Hyperlipidemia Crestor -Hypothyroid [place] Thyroid -Full code Disposition: Home Past Medical History Past Medical History: Coronary Artery Disease (CAD), Hypertension, Thyroid Disorder Additional Past Medical History / Comment(s): Osteoporosis, History of Any Multi-Drug Resistant Organisms: None Reported Past Surgical History: Coronary Bypass/CABG, Hysterectomy, Pacemaker Additional Past Surgical History / Comment(s): cataract, open heart Past Anesthesia/Blood Transfusion Reactions: No Reported Reaction Type of Cardiac Device: AICD Device Placement Date:: 2013 Past Psychological History: No Psychological Hx Reported Smoking Status: Never smoker Past Alcohol Use History: Occasional Past Drug Use History: None Reported Plan - Discharge Summary Discharge Rx Participant: No New Discharge Prescriptions: New metroNIDAZOLE [Flagyl] 500 mg PO TID #42 tab Continue Thyroid,Pork [[place] Thyroid] 90 mg PO DAILY Aspirin [Adult Low Dose Aspirin EC] 81 mg PO DAILY Rosuvastatin [Crestor] 20 mg PO HS Potassium Chloride ER [K-Dur 10] 10 meq PO DAILY Clopidogrel [Plavix] 75 mg PO DAILY Acetaminophen Tab [Tylenol] 650 mg PO Q6HR PRN tab PRN Reason: Mild Pain Or Fever > 100.5 Metoprolol Tartrate [Lopressor] 25 mg PO BID #60 tab Amiodarone [Cordarone] 200 mg PO DAILY Furosemide [Lasix] 20 mg PO DAILY #0 Discharge Medication List Aspirin [Adult Low Dose Aspirin EC] 81 mg PO DAILY 08/06/22 [History] Thyroid,Pork [[place] Thyroid] 90 mg PO DAILY 08/06/22 [History] Metoprolol Tartrate [Lopressor] 25 mg PO BID #60 tab 09/04/23 [Rx] Amiodarone [Cordarone] 200 mg PO DAILY 05/01/24 [History] Clopidogrel [Plavix] 75 mg PO DAILY 05/01/24 [History] Potassium Chloride ER [K-Dur 10] 10 meq PO DAILY 05/01/24 [History] Rosuvastatin [Crestor] 20 mg PO HS 05/01/24 [History] Acetaminophen Tab [Tylenol] 650 mg PO Q6HR PRN tab 05/03/24 [Rx] Furosemide [Lasix] 20 mg PO DAILY #0 05/03/24 [Rx] metroNIDAZOLE [Flagyl] 500 mg PO TID #42 tab 05/15/24 [Rx] Follow up Appointment(s)/Referral(s): Alexis Navarrete DO [Primary Care Provider] - 1-2 days (Patient to make own follow-up appt. Office closed at time of discharge. ) [facility], [REFERRING] - As Needed Pascual Stanford MD [STAFF PHYSICIAN] - 05/18/24 11:00 am (Wound Center ) Josh Garcia MD [STAFF PHYSICIAN] - 2 Weeks (Patient to make own follow-up appt. Office closed at time of discharge. ) [facility], [NON-STAFF] - As Needed Patient Instructions/Handouts: Cefepime (By injection), Cellulitis (ED), Midline Catheter (DC) Activity/Diet/Wound Care/Special Instructions: Wound care per Dr. Chris Stanford- Leave right leg dressing intact until follow up in wound clinic 05/18 @[address] Garcia from ID-Cefepime every 8 hours Discharge Disposition: HOME WITH HOME HEALTH SERVICES
== END 2024-05-15 18:37 | disposition home health service (06) | DRG 857 ==
LOC: EC 07:57 → 5NMEDONC 10:33
PROVIDERS: ADMIT Hospitalist; ATTEND Hospitalist
PROC: 0JBN0ZZ Excision of Right Lower Leg Subcutaneous Tissue and Fascia, Open Approach (ICD-10-PCS; principal; 2024-05-11)
PROC: 05HC33Z Insertion of Infusion Device into Left Basilic Vein, Percutaneous Approach (ICD-10-PCS; 2024-05-15 14:00)
DX: T81.49XA Infection following a procedure, other surgical site, initial encounter (principal); D62 Acute posthemorrhagic anemia; L03.115 Cellulitis of right lower limb; E03.9 Hypothyroidism, unspecified; E78.5 Hyperlipidemia, unspecified; F41.9 Anxiety disorder, unspecified; G47.00 Insomnia, unspecified; I10 Essential (primary) hypertension; I25.10 Atherosclerotic heart disease of native coronary artery without angina pectoris; B96.5 Pseudomonas (aeruginosa) (mallei) (pseudomallei) as the cause of diseases classified elsewhere; B96.4 Proteus (mirabilis) (morganii) as the cause of diseases classified elsewhere; I87.2 Venous insufficiency (chronic) (peripheral); K59.00 Constipation, unspecified; M81.0 Age-related osteoporosis without current pathological fracture; Z79.02 Long term (current) use of antithrombotics/antiplatelets; Z79.82 Long term (current) use of aspirin; Z79.899 Other long term (current) drug therapy; Z82.49 Family history of ischemic heart disease and other diseases of the circulatory system; Z95.1 Presence of aortocoronary bypass graft; Z88.8 Allergy status to other drugs, medicaments and biological substances
CPT/HCPCS: 36410; 36415; 76937; 80053; 82565; 83605; 85025; 87040; 87070; 87075; 87077; 87186; 87205; 96365; 96366; 99285